=== PATIENT | female | born 1945 | race Caucasian/White ===

== ENCOUNTER 2024-07-03 11:19 | Emergency (ER) | payer OTHER, SELFPAY ==
[2024-07-03 11:34] VITALS: BP 88/71; PULSE 117; RESP 16; TEMP 36.3; O2SAT 98
--- NOTE | 2024-07-03 11:36 | ED.BACK ---
HPI - Back Pain/Injury General Chief Complaint: Back Pain/Injury Stated Complaint: Lower Back Pain Time Seen by Provider: 07/03/24 12:00 Source: patient and RN notes reviewed Mode of arrival: ambulatory Limitations: no limitations History of Present Illness HPI Narrative: 78-year-old female presents with concern for low back pain for 2 weeks. Reports it happened after she was working in her garden mowing her lawn. She reports she can find a position of complete comfort when she is lying on her left side in bed with 1 leg bent forward. Reports otherwise she has pain. She reports sitting for long periods of time makes the pain worse. She denies loss of bowel or bladder function, perianal anesthesia, weakness in any extremity, abdominal pain, fever. She has used pain patches. MD elicited complaint: back pain Related Data Home Medications Medication Instructions Recorded Confirmed budesonide 160 mcg-glycopyr 9 2 inh inhalation BID 07/03/24 07/03/24 mcg-formot 4.8 mcg/actuation HFA inhaler (Breztri Estorianphere) lisinopril 10 mg tablet 10 mg PO DAILY 07/03/24 07/03/24 Allergies Allergy/AdvReac Type Severity Reaction Status Date / Time Penicillins Allergy Severe RASH Verified 07/03/24 11:44 Sulfa (Sulfonamide Allergy Severe RASH Verified 07/03/24 11:44 Antibiotics) Review of Systems Review of Systems: CONSTITUTIONAL: Denies malaise, chills, sweats, or fever. CARDIOVASCULAR: Denies chest pain, palpitations, or edema. RESPIRATORY: Denies cough or dyspnea. GASTROINTESTINAL: Denies abdominal pain, nausea, vomiting, diarrhea, loss of bowel function GENITOURINARY: Denies dysuria, hematuria, frequency, loss of bladder function. SKIN: Denies rash or itching. MUSCULOSKELETAL: Reports low back pain NEUROLOGIC: Denies numbness, weakness, or headache. All systems reviewed & are unremarkable except as noted in HPI and below PMFSH Comments At time of signature, agree with nursing past medical, surgical, social and family history. There is no relevant family history pertinent to the presenting complaint Exam Narrative: GENERAL: Well-appearing, well-nourished, and in no acute distress. HEAD: Normocephalic, atraumatic. EYES: PERRLA and EOMI. NECK: Supple. No lymphadenopathy. CHEST: Clear to auscultation. No respiratory distress. HEART: Regular rate and rhythm. Distal pulses palpable and equal, cap refill <3 seconds ABDOMEN: Soft, nontender, nondistended, normal active bowel sounds, no palpable or pulsatile masses. No CVA tenderness MUSCULOSKELETAL: Normal range of motion and strength in all extremities; 5/5 strength with hip flexion and extension, dorsiflexion and extension, knee flexion and extension, plantar flexion and extension. Normal sensation in dermatomal distributions with sensitivity to light touch and pain. No midline back tenderness to palpation. No paraspinal tenderness. SKIN: Warm, dry, no rash. No ecchymosis, erythema, open wounds to back. NEURO: No focal deficits. Alert and oriented x3. Reflexes intact. PSYCH: Normal mood and affect Course Course Emergency Course: Patient is aware of diagnosis, understands and agrees to treatment plan. Anticipatory guidance given. Patient agrees to follow-up as directed and is aware of reasons to seek care at the emergency department. Portions of this record may have been created with voice recognition software Level of Care: Express Care Visit Vital Signs Vital signs: Vital Signs Temperature 97.4 F L 07/03/24 11:34 Pulse Rate 117 H 07/03/24 11:34 Respiratory Rate 16 07/03/24 11:34 Blood Pressure 88/71 L 07/03/24 11:34 Pulse Oximetry 98 07/03/24 11:34 Oxygen Delivery Room Air 07/03/24 11:34 Temperature 97.4 F L 07/03/24 11:34 Pulse Rate 117 H 07/03/24 11:34 Respiratory Rate 16 07/03/24 11:34 Blood Pressure 88/71 L 07/03/24 11:34 Pulse Oximetry 98 07/03/24 11:34 Oxygen Delivery Room Air 07/03/24 11:34 Reviewed.
== END 2024-07-03 12:15 | disposition home or self-care (01) ==
PROVIDERS: Emergency Provider Nurse Practitioner
DX: M54.50 Low back pain, unspecified (principal); I10 Essential (primary) hypertension; J44.9 Chronic obstructive pulmonary disease, unspecified
CPT/HCPCS: 99203; G0463

== ENCOUNTER → 2024-07-26 10:20 | Outpatient (CLI) | payer OTHER, SELFPAY ==
--- NOTE | ~2024-07-26 | XR_ITS ---
EXAMINATION: XR lumbar spine 6V w bending DATE: 07/26/2024 10:46 INDICATION: Acute bilateral low back pain without sciatica. TECHNIQUE: 5 views of lumbar spine including flexion and extension and upright views were obtained. COMPARISON: None. FINDINGS: There is 10 degrees levoscoliosis of lumbar spine. There is chronic height loss of nearly a ll vertebral bodies. There is an age-indeterminate burst fracture of T12 with 2/5 loss of height. The re is mildly decreased disc height at T12-L1 and mildly decreased disc height at multiple levels in t horacic spine. There is severe osteoarthritis at multiple levels in lower lumbar spine. There are judah gical clips from ventral hernia repair. There is an old healed fracture of right femoral neck. There is mild osteoarthritis of the hips. IMPRESSION: 1. Age-indeterminate burst fracture of T12. 2. Mild lumbar spondylosis. 3. Lumbar levoscoliosis. Reviewed, dictated and finalized at location A.
== END ==
LOC: EXPCRAD 10:23
PROVIDERS: PCP Nurse Practitioner Family; Visit Provider Nurse Practitioner Family
DX: M47.896 Other spondylosis, lumbar region (principal); S22.081A Stable burst fracture of T11-T12 vertebra, initial encounter for closed fracture; X58.XXXA Exposure to other specified factors, initial encounter
CPT/HCPCS: 72114

== ENCOUNTER 2025-06-08 07:05 | Outpatient (CLI) | payer OTHER, SELFPAY ==
--- NOTE | ~2025-06-08 | CT_ITS ---
CT of the Abdomen and Pelvis: Indication: Diaphragmatic hernia Technique: 2.5 mm axial scans were obtained through the abdomen and pelvis following intravenous adm inistration of 100 cc of Omnipaque 350. Dose reduction technique was used on this scan by utilizing a utomated exposure control and iterative reconstruction technique. The dose-length product (DLP) was 1 699.18 mGy-cm. Findings: Scans through the lung bases are clear. There is large hiatal hernia. Intrahepatic and extra hepatic biliary dilatation is probably related to prior cholecystectomy. The s pleen, pancreas, right adrenal gland, and kidneys are within normal limits. Thickening of the left ad renal gland could reflect adrenal hyperplasia. There are atherosclerotic calcifications of the aorta. No lymphadenopathy. No bowel obstruction or bowel wall thickening. There is no evidence to suggest acute appendicitis. Mo derate fat-containing ventral hernia present. Images through the pelvis were performed. Urinary bladder unremarkable. No pelvic mass seen. No ascit es. Prior vertebroplasty noted at T12, L2, L3, L4. There is additional compression fracture of L1 and T11 , age indeterminate. Impression: Large hiatal hernia. Moderate fat-containing ventral hernia, neck just superior to prior herniorrhaphy mesh. Intrahepatic and extra hepatic dilatation is probably related to prior cholecystectomy. Multiple compression fractures, as detailed above. Reviewed, dictated and finalized at location . Impression: Large hiatal hernia. Moderate fat-containing ventral hernia, neck just superior to prior herniorrhap hy mesh. Intrahepatic and extra hepatic dilatation is probably related to prior cholecys tectomy. Multiple compression fractures, as detailed above.
--- OUTSIDE RECORDS SUMMARY | 2025-06-08 07:08 | XMS_ITS | Referral Summary ---
Author Organization [facility] Address [address] [place] [address] Care Team Providers Care Cabinet Worker Name Role Phone Ilda Garcia NP Primary Care Provider [phone] Berhane Peterson MD Unavailable [phone] Bret Denny MD Unavailable Encounters Date Type Department Care Team Description 05/29/2025 10:00 AM CDT Office Visit [facility] [address] [place] [address] [place] [phone] Ilda Garcia NP Hiatal hernia (Primary Dx); BMI 37.0-37.9, adult; Obesity (BMI 30-39.9) 04/25/2025 10:00 AM CDT Office Visit [facility] [address] [place] [address] [place] [phone] Ilda Garcia NP Physical exam (Primary Dx); BMI 38.0-38.9,adult; Obesity (BMI 30-39.9) from Last 3 Months Allergies Active Allergy Reactions Criticality Noted Date Comments Penicillins Rash Reaction: Rash, Sulfa (Sulfonamide Antibiotics) Hives,Rash Reaction: HIVES, Reaction: Rash, Medications calcium carb and citrate-vitD3 600 mg-12.5 mcg (500 unit) tablet extended release Take 600 mg by mouth daily Active cholecalciferol (VITAMIN D-3) 5,000 unit tablet Ac tive multivitamin tabletIndications :Vitamin Deficiency Prevention Take 1 tablet by mouth daily Active ibuprofen 200 mg tab/cap Take 2 tablet/capsule (400 mg total) by mouth every 6 (six) hours as needed for pain Active omega-3 fatty acids-fish oil 300-1,000 mg capsule Take 2 capsules (2 g total) by mouth daily Active famotidine (PEPCID) 20 mg tablet Take 1 tablet (20 mg total) by mouth 2 (two) times a day Active meloxicam (MOBIC) 15 mg tablet TAKE 1 TABLET BY MOUTH EVERY DAY 100 tablet 1 025 Active ibandronate (BONIVA) 150 mg tabletIndications :Localized osteoporosis with current pathological fracture, initial encounter,Osteoar thritis of multiple joints, unspecified osteoarthritis type,Primary osteoarthritis of knees, bilateral Take 1 tablet (150 mg total) by mouth every 30 (thirty) days Take in AM with glass of water prior to food, don't lie down for 30 minutes. 3 tablet 1 025 2025 Active Additional Information Patient not taking.Reported on 05/29/2025 lisinopriL (PRINIVIL,ZESTRIL ) 10 mg tablet TAKE 1 TABLET BY MOUTH EVERY DAY 90 tablet 3 025 Active gabapentin (NEURONTIN) 300 mg capsuleIndication s:Neuropathic Pain Take 1 capsule (300 mg total) by mouth 3 (three) times a day 90 capsule 025 2024 Active lisinopriL (PRINIVIL,ZESTRIL ) 10 mg tablet TAKE 1 TABLET BY MOUTH EVERY DAY 90 tablet 3 024 2024 Discontinued gabapentin (NEURONTIN) 300 mg capsule Take 1 capsule (300 mg total) by mouth 3 (three) times a day 90 capsule 1 025 2024 Discontinued(R eorder) Active Problems Problem Noted Date Diagnosed Date BMI 37.0-37.9, adult 05/29/2025 Assessment & Plan (05/29/2025 9:54 AM CDT): Discussed the patients BMI: The BMI is above average BMI management is complete. BMI follow-up includes: Nutrition Counseling and education provided Hiatal hernia 05/29/2025 Localized osteoporosis with current pathological fracture 10/26/2024 Overview (10/26/2024): Start Fosamax weekly as directed for osteoporosis Assessment & Plan (10/26/2024 8:19 AM REPAIRER AND CHECKER): This is a significant, separately identifiable problem that was evaluated and managed on the same day as the wellness exam Obesity (BMI 30-39.9) 10/25/2024 Assessment & Plan (04/25/2025 9:51 AM CDT): Discussed the patient's BMI. The BMI is above average. BMI management plan is completed. BMI Follow-up includes: nutrition counseling, exercise counseling and education provided. Assessment & Plan (10/25/2024 10:29 AM REPAIRER AND CHECKER): Discussed the patients BMI: The BMI is above average BMI management is complete. BMI follow-up includes: Nutrition Counseling and education provided Compression fracture of T12 vertebra 08/31/2024 Compression fracture of fourth lumbar vertebra 1 Obesity, morbid, BMI 40.0-49.9 07/19/2024 Assessment & Plan (07/19/2024 9:08 AM CDT): Discussed the patient's BMI. The BMI is above average. BMI management plan is completed. BMI Follow-up includes: nutrition counseling, exercise counseling and education provided. Chronic obstructive pulmonary disease 03/24/2024 Assessment & Plan (03/24/2024 9:12 AM CDT): This is a significant, separately identifiable problem that was evaluated and managed on the same day as the wellness exam Colon cancer screening declined 09/23/2022 Severe episode of recurrent major depressive disorder, without psychotic features 03/19/2022 Assessment & Plan (03/19/2022 10:36 AM CDT): Declines medication. Will give her information for heartline for counseling. Lipoma of left lower extremity 03/19/2022 Assessment & Plan (03/19/2022 10:36 AM CDT): Advised consult for excision with surgeon, she declines at this time Acute bilateral low back pain without sciatica 1 Herpes labialis 09/18/2021 Herpesviral vesicular dermatitis 09/18/2021 Mixed hyperlipidemia 09/18/2021 Assessment & Plan (09/18/2021 11:37 AM CDT): Fasting labs entered, will notify patient of results as available Other nonthrombocytopenic purpura 09/18/2021 Senile purpura 09/18/2021 Generalized osteoarthritis 09/18/2021 Polyosteoarthritis, unspecified 09/18/2021 Physical exam 09/18/2021 Benign lipomatous neoplasm o f skin and subcutaneous tissue of left leg 03/20/2021 Overview (03/20/2021): Left calf Herpes dermatitis 03/19/2021 Morbid obesity 03/17/2021 Assessment & Plan (09/18/2021 8:11 AM CDT): Obesity is unchanged. Discussed the patient's BMI. The BMI is above average. BMI management plan is completed. BMI Follow-up includes: nutrition counseling, exercise counseling and education provided. Assessment & Plan (03/17/2021 8:17 AM CDT): Obesity is unchanged. Discussed the patient's BMI. The BMI is above average. BMI management plan is completed. BMI Follow-up includes: nutrition counseling, exercise counseling and education provided. Vitamin D deficiency 03/17/2021 Assessment & Plan (03/19/2022 10:36 AM CDT): Will evaluate further with labs Assessment & Plan (03/17/2021 8:55 AM CDT): Fasting labs entered, will notify patient of results as available History of tobacco use 03/17/2021 Primary osteoarthritis of knees, bilateral 12/04 Acute lateral meniscus tear of left knee 020 Chondromalacia 09/04/2019 Derangement of lateral meniscus 09/04/2019 Left knee pain 06/30/2019 Effusion of left knee 03/27/2019 Hypertension, essential 02/20/2019 Assessment & Plan (03/19/2022 10:35 AM CDT): Patient advised to continue medications the same at this time. They will monitor home bp with goal 120-130/80s. Fasting labs entered, will notify patient of results as available Advised carotid US, she declines at this time. Assessment & Plan (09/18/2021 11:37 AM CDT): Stable, continue medications same at this time Assessment & Plan (03/17/2021 8:55 AM CDT): Fasting labs entered, will notify patient of results as available Continue medication same at this time Primary osteoarthritis of right knee 04/16/2017 Assessment & Plan (09/18/2021 11:37 AM CDT): Stable, continue care same at this time Fracture of upper end of right humerus with rout ine healing 02/14/2016 Resolved Problems Problem Noted Date Diagnosed Date Resolved Date BMI 38.0-38.9,adult 04/25/2025 05/29/20 25 Assessment & Plan (04/25/2025 9:51 AM CDT): Discussed the patients BMI: The BMI is above average BMI management is complete. BMI follow-up includes: Nutrition Counseling and education provided BMI 38.0-38.9,adult 03/24/2023 03/24/20 24 Assessment & Plan (03/24/2023 8:32 AM CDT): Discussed the patients BMI: The BMI is above average BMI management is complete. BMI follow-up includes: Nutrition Counseling and education provided BMI 37.0-37.9, adult 03/24/2023 024 Assessment & Plan (09/24/2023 8:59 AM CDT): Discussed the patients BMI: The BMI is above average BMI management is complete. BMI follow-up includes: Nutrition Counseling and education provided BMI 40.0-44.9, adult 11/04/2022 023 Assessment & Plan (11/04/2022 8:15 AM REPAIRER AND CHECKER): Obesity is unchanged. Discussed the patient's BMI. The BMI is above average. BMI management plan is completed. BMI Follow-up includes: nutrition counseling, exercise counseling and education provided. Morbid obesity with BMI of 40.0-44.9, adult 11/04/2022 03/24/2023 Assessment & Plan (11/04/2022 8:16 AM REPAIRER AND CHECKER): Obesity is unchanged. Discussed the patient's BMI. The BMI is above average. BMI management plan is completed. BMI Follow-up includes: nutrition counseling, exercise counseling and education provided. BMI 39.0-39.9,adult 09/18/2021 07/19/20 24 Assessment & Plan (09/18/2021 8:11 AM CDT): Obesity is unchanged. Discussed the patient's BMI. The BMI is above average. BMI management plan is completed. BMI Follow-up includes: nutrition counseling, exercise counseling and education provided. BMI 36.0-36.9,adult 03/17/2021 09/18/20 21 Assessment & Plan (03/17/2021 8:17 AM CDT): Obesity is unchanged. Discussed the patient's BMI. The BMI is above average. BMI management plan is completed. BMI Follow-up includes: nutrition counseling, exercise counseling and education provided. Encounter to establish care 03/17/2021 03/19/2022 Assessment & Plan (03/17/2021 8:55 AM CDT): Retrieve records from previous pcp Declines mammo, cscope, bmd, and vaccinations Fasting labs entered, will notify patient of results as available Immunizations Immunization Administration Dates Next Due Influenza, Unspecified 11/22/2024(Deferr ed: Patient Refused),11/22/2024(Deferred: Patient Refused),10/25/2024(Deferred: Patient Refused),11/22/2023(Deferred: Patient Refused),11/22/2023(Deferred: Patient Refused),11/22/2023(Deferred: Patient Refused),11/22/2023(Deferred: Patient Refused),09/24/2023,03/24/2023(Deferred: Patient Refused),11/22/2022,12/23/2021(Deferred: Patient Refused),09/10/2021(Deferred: Patient Refused) Pneumococcal Conjugate Pcv20 03/24/2023(Deferred : Patient Refused) Tdap 08/28/2019 ZOSTER Recombinant 05/29/2025(Deferred: Patient Refused),09/24/2023(Deferred: Patient Refused),11/22/2022(Deferred: Patient Refused) Social History Tobacco Use Types Packs/Day Years Used Date Smoking Tobacco: Former Passive Smoke Exposure: Current Smokeless Tobacco: Never Tobacco Cessation:Counseling Given: Not Answered Alcohol Use Standard Drinks/Week Comments Never 0 (1 standard drink = 0.6 oz pur e alcohol) AUDIT-C Answer Date Recorded Q1: How often do you have a drink containing alc ohol? Monthly or less 05/29/2025 Q2: How many drinks containi ng alcohol do you have on a typical day when you are drinking? 1 or 2 05/29/2025 Q3: How often do you have si x or more drinks on one occasion? Never 05/29/2025 PHQ-2 Answer Date Recorded PHQ-2 Total Score (If total score is 3 or more points, staff should administer the PHQ-9) 0 05/29/2025 Personal Safety Answer Date Recorded Have you ever been in or are you currently in a harmful physical or emotional relationship or is someone making you feel afraid or unsafe? Denies 09/19/2024 Comments No Sex and Gender Information Value Date Recorded Sex Assigned at Not on file Legal Sex Female 12:48 AM REPAIRER AND CHECKER Gender Identity Not on file Sexual Orientation Not on file Last Filed Vital Signs Vital Sign Reading Time Taken Comments Blood Pressure 132/78 05/29/2025 9:50 AM CDT Pulse 78 05/29/2025 9:50 AM CDT Temperature 37 C (98.6 F) 05/29/2025 9:50 AM CDT Respiratory Rate 18 02/01/2025 12:02 PM CDT Oxygen Saturation 98% 05/29/2025 9:50 AM CDT Inhaled Oxygen Concentration - - Weight 83.9 kg (185 lb) 05/29/2025 9:50 AM CDT Height 149.9 cm (4' 11) 05/29/2025 9:50 AM CDT Body Mass Index 37.37 05/29/2025 9:50 AM CDT Plan of Treatment Not on file Medical Devices Implanted Type Area Process Designer Device Identifier Shelf Expiration Date Model / Serial / Lot [employer] Vertaplex Hv Autoplex Without Needle Delivery System Kit Bone [id number] - [id number] Implanted:Qty : 1 on 09/05/2024 by Bret Denny MD at [facility] N/A: Spine Lumbar [employer] [id number] 06/22/2025 [id number] / / [id number] Description:Cement Ref 0406- 622-015; Lot [id number]; Expiration 07-22-2025 [employer] Vertaplex Hv Autoplex Without Needle Delivery System Kit Bone [id number] - [id number] Implanted:Qty : 1 on 09/19/2024 by Bret Denny MD at [facility] N/A: Spine Lumbar [employer] [id number] 06/22/2025 [id number] / / [id number] Description:[id number] 10/21/2025 Explanted Type Area Process Designer Device Identifier Shelf Expiration Date Model / Serial / Lot [employer] Avamax Od13 Ga L10 Mm Balloon Tray Bone Cement [id number] - [id number] Explanted:Qty : 2 on 09/05/2024 by Bret Denny MD at [facility] N/A: Spine Lumbar [employer] [id number] 12/29/2025 [id number] / / [id number] Description:Not an Implant [employer] Avamax Od13 Ga L10 Mm Balloon Tray Bone Cement [id number] - [id number] Explanted:Qty : 1 on 09/19/2024 by Bret Denny MD at [facility] N/A: Spine Lumbar [employer] [id number] 09/21/2025 [id number] / / [id number] [employer] Avamax Od13 Ga L10 Mm Balloon Tray Bone Cement [id number] - [id number] Explanted:Qty : 1 on 09/19/2024 by Bret Denny MD at [facility] N/A: Spine Lumbar [employer] [id number] 09/21/2025 [id number] / / [id number] Procedures Procedure Name Priority Date/Time Associated Diagnosis Comments HEPATITIS C ANTIBODY Routine 09/23/2022 8:57 AM CDT Encounter for hepatitis C screening test for low risk patient from Last 3 Months or Most Recently Relevant to Health Maintenance Results * Hepatitis C antibody (09/23/2022 8:57 AM CDT) Hep C Ab NON-REACTI VE NON-REACT CODI [facility] SIGNAL TO CUT-OFF 0.01 <1.00 [facility] Comment: HCV antibody was non-reactive. There is no laboratory evidence of HCV infection. In most cases, no further action is required. However, if recent HCV exposure is suspected, a test for HCV RNA (test code 80532) is suggested. For additional information please refer to http://education.[employer]/faq/IZX13u9 (This link is being provided for informational/ educational purposes only.) Blood 09/23/2022 8:57 AM CDT 09/23/2022 8:57 AM CDT Ilda Garcia NP LAB MICROBIOLOGY - GENERAL OR DERABLES Final Result [facility] [address] [phone] from Last 3 Months or Most Recently Relevant to Health Maintenance Insurance [facility] Care Teams Cabinet Worker Relationship Specialty Start Date End Date Ilda Garcia NP [address] [address] PCP - General Internal Medicine 03/24/23 Berhane Peterson MD [address] [facility] [address] [address] Consulting Physician Internal Medicine 08/31/24 Bret Denny MD [address] [facility], [address] [address] Consulting Physician Pain Management 08/31/24
--- OUTSIDE RECORDS SUMMARY | 2025-06-08 07:08 | XMS_ITS | Clinical Summary ---
Author Organization [facility] Address [address] [place] [address] Care Team Providers Care Dynamite Packing Machine Feeder Name Role Phone Ilda Garcia NP Primary Care Provider [phone] Berhane Peterson MD Unavailable [phone] Bret Denny MD Unavailable Allergies Active Allergy Reactions Criticality Noted Date [...] day 90 capsule 1 025 2024 Discontinued(R eodarlyner) Active Problems Problem Noted Date Diagnosed Date [...] osteoporosis Assessment & Plan (10/26/2024 8:19 AM MEDICAL BILLING INSTRUCTOR): This is a significant, separately identifiable problem that was evaluated and managed on the same day as the wellness exam Obesity (BMI 30-39.9) 10/25/2024 Assessment & Plan (04/25/2025 9:51 AM CDT): Discussed the patient's BMI. The BMI is above average. BMI management plan is completed. BMI Follow-up includes: nutrition counseling, exercise counseling and education provided. Assessment & Plan (10/25/2024 10:29 AM MEDICAL BILLING INSTRUCTOR): Discussed the patients BMI: The BMI is [...] 023 Assessment & Plan (11/04/2022 8:15 AM MEDICAL BILLING INSTRUCTOR): Obesity is unchanged. Discussed the patient's BMI. The BMI is above average. BMI management plan is completed. BMI Follow-up includes: nutrition counseling, exercise counseling and education provided. Morbid obesity with BMI of 40.0-44.9, adult 11/04/2022 03/24/2023 Assessment & Plan (11/04/2022 8:16 AM MEDICAL BILLING INSTRUCTOR): Obesity is unchanged. Discussed the patient's BMI. [...] will notify patient of results as available Encounters Date Type Department Care Team Description 05/29/2025 10:00 AM CDT Office Visit [address] [phone] Ilda Garcia NP Hiatal hernia (Primary Dx); BMI 37.0-37.9, adult; Obesity (BMI 30-39.9) 04/25/2025 10:00 AM CDT Office Visit [address] [place] [phone] Ilda Garcia NP Physical exam (Primary Dx); BMI 38.0-38.9,adult; Obesity (BMI 30-39.9) from Last 3 Months Immunizations Immunization Administration Dates Next Due Influenza, Unspecified 11/22/2024(Deferr ed: Patient Refused),11/22/2024(Deferred: Patient Refused),10/25/2024(Deferred: Patient Refused),11/22/2023(Deferred: Patient Refused),11/22/2023(Deferred: Patient Refused),11/22/2023(Deferred: Patient Refused),11/22/2023(Deferred: Patient Refused),09/24/2023,03/24/2023(Deferred: Patient Refused),11/22/2022,12/23/2021(Deferred: Patient Refused),09/10/2021(Deferred: Patient Refused) Pneumococcal Conjugate Pcv20 03/24/2023(Deferred : Patient Refused) Tdap 08/28/2019 ZOSTER Recombinant 05/29/2025(Deferred: Patient Refused),09/24/2023(Deferred: Patient Refused),11/22/2022(Deferred: Patient Refused) Surgical History Surgery Date Site/Laterality Comments CHOLECYSTECTOMY HERNIA REPAIR 11/22/2002 - 11/21/2003 X2 HYSTERECTOMY COLECTOMY REPORTS PART OF COLON REMOVED KYPHOPLASTY 09/19/2024 N/A L2 & L4 Medical History Medical History Date Comments Hypertension COPD (chronic obstructive pu lmonary disease) (HCC) Arthritis Major depressive disorder PATIEN T DENIES. NOTED IN CHART. Hyperlipidemia Hiatal hernia CAUSES REFLUX GERD (gastroesophageal reflux disease) Family History Medical History Relation Name Comments COPD Father Heart disease Father Heart disease Mother Cancer Other Diabetes Other Heart disease Other Hypertension Other Relation Name Status Comments Father Mother Alive Other Social History Tobacco Use Types Packs/Day Years [...] on file Legal Sex Female 12:48 AM MEDICAL BILLING INSTRUCTOR Gender Identity Not on file Sexual Orientation Not on file Obstetrics History Last Filed Vital Signs Vital Sign Reading [...] 05/29/2025 9:50 AM CDT Plan of Treatment Health Maintenance Due Date Last Done Comments Osteoporosis Screening-Bone Density Scan 1945 Hepatitis B Screening 1964 Zoster Vaccine (1 of 2) 1996 Influenza Vaccine (#1) 2025 09/24/2023, 2022 Well Visit 65+ 04/25/2026 04/25/2025, 02/2024, 03/24/2024, Additional history exists Depression Screening 05/29/2026 05/29/2025, 04/25/2025, 10/25/2024, Additional history exists Fall Risk Assessment 05/29/2026 05/29/2025, 04/25/2025, 10/25/2024, Additional history exists DTaP/Tdap/Td Vaccine (2 - Td or Tdap) 08/28/2029 08/28/2019 Hepatitis C Screening Completed 09/23/2022 Pneumococcal vaccine 65+ Discontinued Medical Devices Implanted Type Area Senior Product Development Scientist Device Identifier Shelf Expiration Date Model / Serial / Lot [employer] Vertaplex Hv Autoplex Without Needle Delivery System Kit Bone [id number] - [id number] Implanted:Qty : 1 on 09/05/2024 by Bret Denny MD at [facility] N/A: Spine Lumbar [employer] [id number] 06/22/2025 [id number] / / [id number] Description:Cement Ref 0406- 622-015; Lot [id number]; Expiration 07-22-2025 [employer] Vertaplex Hv Autoplex Without Needle Delivery System Kit Bone [id number] - [id number] Implanted:Qty : 1 on 09/19/2024 by Bret Denny MD at [facility] N/A: Spine Lumbar [employer] [id number] 06/22/2025 [id number] / / [id number] Description:[id number] 10/21/2025 Explanted Type Area Senior Product Development Scientist Device Identifier Shelf Expiration Date Model / Serial / Lot [employer] Avamax Od13 Ga L10 Mm Balloon Tray Bone Cement [id number] - [id number] Explanted:Qty : 2 on 09/05/2024 by Bret Denny MD at [facility] N/A: Spine Lumbar [employer] [id number] 12/29/2025 [id number] / / [id number] Description:Not an Implant [employer] Avamax Od13 Ga L10 Mm Balloon Tray Bone Cement [id number] - [id number] Explanted:Qty : 1 on 09/19/2024 by Bret Denny MD at [facility] N/A: Spine Lumbar [employer] [id number] 09/21/2025 [id number] / / [id number] [employer] Avamax Od13 Ga L10 Mm Balloon Tray Bone Cement [id number] - [id number] Explanted:Qty : 1 on 09/19/2024 by Bret Denny MD at [facility] N/A: Spine Lumbar [employer] [id number] 09/21/2025 [id number] / / [id number] Procedures Procedure Name Priority Date/Time Associated Diagnosis [...] a test for HCV RNA (test code 70943) is suggested. For additional information please refer to http://education.[employer]/faq/EZU84y7 (This link is being provided for informational/ educational purposes only.) Blood 09/23/2022 8:57 AM CDT 09/23/2022 8:57 AM CDT Ilda Garcia NP LAB MICROBIOLOGY - GENERAL OR DERABLES Final Result Performing Organization Address City/State/[facility] Co de Phone Number [facility] [address] [place] [address] from Last 3 Months or Most Recently Relevant to Health Maintenance Insurance [facility] Care Teams Dynamite Packing Machine Feeder Relationship Specialty Start Date End Date Ilda Garcia NP [address] [facility] [address] [place] [address] PCP - General Internal Medicine 03/24/23 Berhane Peterson MD [address] [facility] [address] [address] Consulting Physician Internal Medicine 08/31/24 Bret Denny MD [address] [facility] [address] Consulting Physician Pain Management 08/31/24
[2025-06-08 07:44] LABS: Estimated Glomerular Filt Rate 54
== END 2025-06-08 07:06 | disposition home or self-care (01) ==
PROVIDERS: PCP Nurse Practitioner Family; Visit Provider Nurse Practitioner Family
DX: K44.9 Diaphragmatic hernia without obstruction or gangrene (principal); K43.9 Ventral hernia without obstruction or gangrene; K76.89 Other specified diseases of liver; S32.010A Wedge compression fracture of first lumbar vertebra, initial encounter for closed fracture; S22.080A Wedge compression fracture of T11-T12 vertebra, initial encounter for closed fracture; X58.XXXA Exposure to other specified factors, initial encounter; Z98.890 Other specified postprocedural states; Z90.49 Acquired absence of other specified parts of digestive tract
CPT/HCPCS: 74177; Q9967

== ENCOUNTER 2025-08-03 12:10 | Outpatient (CLI) | payer OTHER, SELFPAY ==
--- OUTSIDE RECORDS SUMMARY | 2021-08-15 03:33 | XMS_ITS | Continuity of Care Document ---
Author Organization [facility] Address [address] [place] [address] Phone Care Team Providers Care Rag Sorter Name Role Phone Jake Prather DO Unavailable [...] PANEL URINALYSIS, REFLEX (UA) ROUTINE VENIPUNCTURE OFFICE [id number] BODY MASS INDEX DOCD SYST BP GE 130 - 139MM HG DIAST BP < 80 MM HG OFFICE [id number] BODY MASS INDEX DOCD SYST BP GE 130 - 139MM HG DIAST BP 80-89 MM HG OFFICE [id number] BODY MASS INDEX DOCD SYST BP LT 130 MM HG DIAST BP 80-89 MM HG FREE T4 (FT4) THYROID STIMULATION HORMONE(TSH) 2018 ROUTINE VENIPUNCTURE Pt inelig neg scrn depres IMMUN ADMIN (INC PERCUTANEOUS) SINGLE, F IRST INJ TDAP INTRAMUSCULAR USE COMPREHEN METABOLIC PANEL CMP 9 LIPID PANEL THYROID STIMULATION HORMONE(TSH) 2018 URINALYSIS, REFLEX (UA) ROUTINE VENIPUNCTURE OFFICE [id number] BODY MASS INDEX DOCD SYST BP GE 130 - 139MM HG DIAST BP < 80 MM HG Advance Directives Directive Yes / No Effective Date File Name No Information Encounters Encounter Description Practice Location Reason(s) For Visit Diagnoses Date Provider Providers Copied on Encounter [facility], [address], [address] [address], [place], [id number] , [place] tel: [phone] [facility] Internal Medicine No Information 1 Serena Joseph. [address] [place] [address], [place], [place], [address], [place]. tel:[phone] [facility], [address], [place] [address], [place], [address] , [place] tel: [phone] [facility] Internal Medicine No Information 1 Serena Joseph. [facility] [place], [place], [address], [place]. tel:[phone] [facility], [address], [place] [address], [place], [address] , [place] tel: [phone] [facility] Internal Medicine Screening mammogram, encounter for 0 Jeevan Garcia. [address] [place] [address], [address], [place]. tel:[phone] [facility], [address], [place] [address], [place], [address] , [place] tel: [phone] [facility] Outpatient Services Encounter for screening for malignant neoplasm of colon Jul- 0 Serena Joseph. [address] [place] [address], [id number], [place]. tel:[phone] Referring Provider: Jake ventura, [address] [place] [address], [address] . tel:[phone] OFFICE RWVTV-YMY-EX [facility], [address], [place] [address], [place], [address] , tel: [phone] [facility] Internal Medicine Chronic Conditions (chief complaint) Polyosteoarthr itis, unspecifiedEss ential (primary) hypertensionOt her nonthrombocyto penic purpuraMorbid (severe) obesity due to excess caloriesEncoun ter for screening mammogram for malignant neoplasm of breastScreenin g for malignant neoplasm of colonAcute midline low back pain without sciatica Sep-2 0 Jeevan Garcia. [address] [place] [address], [address], [place]. tel:[phone] Referring Provider: Jake ventura, [address] [place] [address], [address] . tel:[phone] [facility], [address], [place] [address], [place], [address] , [place] tel: [phone] [facility] No Information 0 Serena Joseph. [address] [place] [address], [id number], [place]. tel:[phone] [facility], [address], [place] [address], [place], [address] , [place] tel: [phone] [facility] Herpesviral vesicular dermatitis 0 Serena Joseph. [address] [place] [address], [id number], [place]. tel:[phone] [facility], [address], [place] [address], [place], [address] , tel: [phone] [facility] Recurrent aphthous ulcerHerpesvir al vesicular dermatitis 0 Serena Joseph. [address] [place] [address], [id number], [place]. tel:[phone] OFFICE LVIJL-OVF-UC [facility], [address], [place] [address], [place], [address] , [place] tel: [phone] [facility] Office Visit (chief complaint)C hronic Conditions (chief complaint) Body mass index (BMI) 36.0-36.9, adultHerpesvir al vesicular dermatitisEsse ntial (primary) hypertensionCh ondromalacia, left kneeOther meniscus derangements, other lateral meniscus, left kneeSubcutaneo us lipoma 0 Serena Joseph. [address] [place] [address], [id number], [place]. tel:[phone] Referring Provider: Jake ventura, [address] [place] [address], [address] . tel:[phone] [facility], [address], [place] [address], [place], [address] , [place] tel: [phone] [facility] No Information 9 Serena Joseph. [address] [place] [address], [id number], [place]. tel:[phone] OFFICE AIDGP-SBR-RF [facility], [address], [place] [address], [place], [address] , tel: [phone] [facility] Lesions (chief complaint) Recurrent aphthous ulcer 9 Serena Joseph. [address] [place] [address], [id number], [place]. tel:[phone] Referring Provider: Jake ventura, [address] [place] [address], [address] . tel:[phone] [facility], [address], [place], [place], [address] , tel: [phone] [facility] Other specified abnormal findings of blood chemistry 9 Serena Joseph. [address] [place] [address], [id number], [place]. tel:[phone] Referring Provider: Jake ventura, [address] [place] [address], [address] . tel:[phone] [place] [address], [address], [place] [address], [place], [address] , [place] tel: [phone] [facility] Elevated TSH 9 Serena Joseph. [address] [place] [address], [id number], [place]. tel:[phone] OFFICE RCUQT-FIG-PB [facility], [address], [place] [address], [place], [address] , tel: [phone] [facility] 6 month (chief complaint)C hronic Conditions (chief complaint) Body mass index (BMI) 37.0-37.9, adultEssential (primary) hypertensionMi xed hyperlipidemia Polyosteoarthr itis, unspecifiedOth er nonthrombocyto penic purpuraHerpesv iral vesicular dermatitisPunc ture wound of finger of left hand, initial encounter 9 Serena Joseph. [address] [place] [address], [id number], [place]. tel:[phone] Referring Provider: Jake ventura, [address] [place] [address], [place], [address] . tel:[phone] [facility], [address], [place] [address], [place], [address] , [place] tel: [phone] [facility] Essential (primary) hypertensionRe fused pneumococcal vaccineMammogr am declinedPolyos teoarthritis, unspecifiedMix ed hyperlipidemia Obesity, unspecified 9 Serena Joseph. [address] [place] [address], [place], [place], [id number], [place]. tel:[phone] Referring Provider: Jake ventura, [address] [place] [address], [place], [address] . tel:[phone] [facility], [address], [place] [address], [place], [address] , [place] tel: [phone] [facility] Primary osteoarthritis of right knee 9 Serena Joseph. [address] [place] [address], [id number], [place]. tel:[phone] [facility], [address], [place] [address], [place], [address] , [place] tel: [phone] [facility] Essential (primary) hypertensionPr imary osteoarthritis of right kneeMixed hyperlipidemia Mammogram declinedRefuse d pneumococcal vaccineMorbid (severe) obesity due to excess caloriesSenile purpura 8 Michael Garcia. [address] [facility], [address], [place], [place], [address]. tel:[phone] Referring Provider: Jose Rodriguez, [address] [facility] [address] [place] [address], [address] . tel:[phone] [facility], [address], [place] [address], [place], [address] , tel: [phone] [facility] Essential (primary) hypertensionPr imary osteoarthritis of right kneeMixed hyperlipidemia Mammogram declinedRefuse d pneumococcal vaccineSenile purpuraObesity (BMI 30-39.9) 8 Michael Garcia. [address] [facility], [address], [place], [place], [address]. tel:[phone] Referring Provider: Jose Rodriguez, [address] [facility] [address], [place], [address] . tel:[phone] [facility], [address], [place] [address], [place], [address] , tel: [phone] [facility] Essential (primary) hypertensionPr imary osteoarthritis of right kneeMorbid (severe) obesity due to excess caloriesMixed hyperlipidemia Senile purpura 7 Michael Garcia. [address] [facility], [address], [place], [place], [address]. tel:[phone] Referring Provider: Jose Rodriguez, [address] [facility] [address], [place], [address] . tel:[phone] [facility], [address], [place] [address], [place], [address] , tel: [phone] [facility] Essential (primary) hypertensionPr imary osteoarthritis of right kneeMorbid (severe) obesity due to excess caloriesMixed hyperlipidemia 3 7 Michael Garcia. [address] [facility] [address], [address], [place], [place], [address]. tel:[phone] Referring Provider: Jose Rodriguez, [address] [facility] [address], [place], [address] . tel:[phone] [facility], [address], [place] [address], [place], [address] , tel: [phone] [facility] Essential (primary) hypertensionPr imary osteoarthritis of right kneePure hypercholester olemiaMorbid obesity due to excess calories Sep-1 2-201 6 Michael Garcia. [address] [facility], [address], [place], [place], [address]. tel:[phone] Referring Provider: Jose Rodriguez, [address] [facility] [address], [place], [address] . tel:[phone] [facility], [address], [place] [address], [place], [address] , tel: [phone] [facility] History of humerus fracture Jan-1 4-201 6 Michael Garcia. [address] [facility], [address], [place], [place], [address]. tel:[phone] [facility], [address], [place], [place], [address] , tel: [phone] [facility] Essential (primary) hypertensionAt herosclerosis of aortaOsteoarth ritis of knee, unspecifiedHis tory of humerus fractureMorbid obesity due to excess caloriesBMI 36.0-36.9,adul t Mar-0 3-201 6 Michael Garcia. [address] [facility], [address], [place], [place], [address]. tel:[phone] Referring Provider: Jose Rodriguez, [address] [facility] [address], [place], [address] . tel:[phone] [facility], [address], [place] [address], [place], [address] , [place] tel: [phone] [facility] Fracture of right shoulder with routine healing Mar-0 2-201 6 Michael Garcia. [address] [facility], [address], [place], [place], [address]. tel:[phone] [facility], [address], [place] [address], [place], [address] , [place] tel: [phone] [facility] Acute pain of right shoulder Feb-0 5-201 6 Michael Garcia. [address] [facility], [address], [place], [place], [address]. tel:[phone] [facility], [address], [place], [place], [address] , tel: [phone] [facility] Pain in unspecified knee 0 5 Rodriguez Jose. [address] [facility] [address], [address], [place], [place], [address]. tel:[phone] [facility], [address], [place], [place], [address] , tel: [phone] [facility] HypertensionAo rtic atherosclerosi sHiatal herniaMorbid obesityBMI 38.0-38.9,adul tOsteoarthriti s of right knee 5 Rodriguez Jose. [address] [facility] [address], [address], [place], [place], [address]. tel:[phone] Referring Provider: Jose Rodriguez, [address] [facility] [address], [place], [address] . tel:[phone] [facility], [address], [place], [place], [address] , tel: [phone] [facility] HypertensionAo rtic atherosclerosi sHiatal herniaMorbid obesityFAMILY HX-BREAST MALIGOsteoarth ritis of right knee 5 Rodriguez Jose. [address] [facility] [address], [address], [place], [place], [address]. tel:[phone] Referring Provider: Joes Rodriguez, [address] [facility] [address], [place], [address] . tel:[phone] [facility], [address], [place] [address], [place], [address] , [place] tel: [phone] [facility] HypertensionHi atal herniaAortic atherosclerosi sMorbid obesityBMI 40.0-44.9, adultOsteoarth ritis of right knee 4 Rodriguez Jose. [address] [facility] [address], [address], [place], [place], [address]. tel:[phone] Referring Provider: Jose Rodriguez, [address] [facility] [address], [place], [address] . tel:[phone] [facility], [address], [place] [address], [place], [address] , tel: [phone] [facility] History of fall/At Risk For FallingHistory of colon resectionDiver ticulosisHyper tensionOsteoar thritis of right kneeAnnual physical examMorbid obesityAdult body mass index 40.0-44.9Routi ne Medical ExamHiatal hernia 3-201 4 Rodriguez Jose. [address] [facility], [address], [place], [place], [address]. tel:[phone] Referring Provider: Jose Rodriguez, [address] [facility] [address], [place], [address] . tel:[phone] [facility], [address], [place] [address], [place], [address] , tel: [phone] [facility] No Information Sep-0 6-201 1 Rodriguez Jose. [address] [facility], [address], [place], [place], [address]. tel:[phone] [facility], [address], [place] [address], [place], [address] , tel: [phone] [facility] GENERAL OSTEOARTHROSIS ROUTINE MEDICAL EXAMBACKACHE NOSVENTRAL HERNIA NEC Noe-0 8-200 9 Rodriguez Jose. [address] [facility], [address], [place], [place], [address]. tel:[phone] [facility], [address], [place] [address], [place], [address] , tel: [phone] [facility] MALIGNANT BLAISE COLON NOSDVRTCLO COLON W/O HMRHGDVRTCLI COLON W/O HMRHGPOST-PROC STATES NECABRASION TRUNKFAMILY HX-BREAST MALIGADRENAL DISORDER NECVACCINATION FOR TD-DT Dec-0 8-200 8 Rodriguez Jose. [address] [facility], [address], [place], [place], [address]. tel:[phone] [facility], [address], [place] [address], [place], [address] , [place] tel:[phone] [facility] FEVERURIN TRACT INFECTION NOSLEG VARICOSITY W INFLAM 5-200 8 Rodriguez Jose. [address] [facility], [address], [place], [place], [address]. tel:[phone] [facility], [address], [place], [place], [address] , [place] tel:[phone] [facility] ENDOCRINE/NERV BLAISE NOS Sep 8-200 3 Rodriguez Jose. [address] [facility], [address], [place], [place], [address]. tel:[phone] [facility], [address], [place] [address], [place], [address] , [place] tel: [phone] [facility] OBESITY NOS 3-200 3 Rodriguez Jose. [address] [facility], [address], [place], [place], [address]. tel:[phone] [facility], [address], [place] [address], [place], [address] , [place] tel:[phone] [facility] SCIATICA Apr-0 9-200 2 Rodriguez Jose. [address] [facility], [address], [place], [place], [address]. tel:[phone] [facility], [address], [place] [address], [place], [address] , [place] tel:[phone] [facility] SCREEN MAL NEOP OTH SITE Aug-0 6-200 1 Rodriguez Jose. [address] [facility], [address], [place], [place], [address]. tel:[phone] [facility], [address], [place] [address], [place], [address] , [place] tel:[phone] [facility] HYPOTHYROIDISM NOS 3-200 1 Rodriguez Jose. [address] [facility], [address], [place], [place], [address]. tel:[phone] [facility], [address], [place] [address], [place], [address] , [place] tel: [phone] [facility] JOINT PAIN-UP/ARM 1 Conversion Doctor. [address] [place], [address], [place]. [facility], [address], [place], [place], [address] , tel: [phone] [facility] DERMATITIS NOSNONSPECIF SKIN ERUPT NEC 1 [facility]. [address] [employer], [place], [address], [place]. Family History Family Member Type Diagnosis [...] older refused Source: New Immuniz ation Record 26425 - TD administered Source: Source Unspecified Payers Payer name Insurance type Covered democrat ID Authoriza tion(s) [place] [id number] [place] [id number] [place] [id number] [place] [id number] Social History Type Description Quantity Date Captured Comments Sex Female Smoking Status No Information Chief Complaint And Reason For Visit No Information Reason For Referral Reason For Referral No Information Plan Of Treatment Date Type Action Status Goal Dietary manageme nt education, guidance, and counseling completed Goal Dietary manageme nt education, guidance, and counseling completed Referral Referred To: [address] [place], [phone] Ordered: SCREENING MAMMOGRAM (CAD) Appointment date/timeframe: 05/22/2021 ordered Referral Referred To: Yajaira Jules MD [address] [place], [phone] Ordered: Referrals: Gastroenterology. Yajaira Jules MD. Evaluation/diagnostic/treatment - Level 3 Appointment date/timeframe: 05/22/2021 ordered Referral Ordered: Homero Mohamud -Dermatology (related to Herpesviral vesicular dermatitis) ordered Referral Referred To: Homero Mohamud [address] [facility] [place]
[address] [place], [phone] Ordered: Referrals: Dermatology. Homero Mohamud. Evaluation/diagnostic/treatment - Level 3 ordered Referral Ordered: Sandeep Segundo MD -Otolaryngology (related to Herpesviral vesicular dermatitis) ordered Referral Referred To: Sandeep Segundo MD [address] [facility]
[address] [place], [phone] Ordered: Referrals: Otolaryngology. Sandeep Segundo MD. Evaluation/diagnostic/treatment [...] to the freestanding breast imaging place in [place]- I am unsure if they still do [...]
--- NOTE | ~2025-08-03 | XR_ITS ---
Examination: XR chest 2V Clinical History: K43.0 - Incisional hernia with obstruction, without gangrene Comparison: None Technique: Portable AP Findings: Heart size normal. Lungs clear. No acute bony abnormality. Severe thoracic kyphosis and severe osteopenia. Several vertebral bodies with cement augmentation. Large hiatal hernia. IMPRESSION: 1. No acute cardiopulmonary findings. Reviewed, dictated and finalized at location R.
--- NOTE | 2025-08-03 12:30 | ECG_ITS ---
Test Date: 2025-08-03 12:39:15 Measurements Intervals [place] Rate: 78 P: 87 SD: 196 QRS: -5 QRSD: 89 T: 14 QT: 368 QTc: 420 Interpretive Statements SINUS RHYTHM WITH OCCASIONAL VENTRICULAR PREMATURE COMPLEXES WARNING: DATA QUALITY MAY AFFECT INTERPRETATION No previous ECG available for comparison Electronically Signed On 08-03-2025 15:43:48 CDT by Feng Nielson M.D.
[2025-08-03 13:26] LABS: Hematocrit 39.5 % (37.0-47.0); Hemoglobin 13.1 g/dL (12.0-15.0); Immature Granulocyte Percent A 0.6 % (0-0.5); Lymphocytes Absolute Auto 1.55 K/mm3 (0.9-3.2); Mean Corpuscular HGB Conc 33.2 g/dl (32-36); Mean Corpuscular Hemoglobin 30.0 pg (26-34); Mean Corpuscular Volume 90.6 fl (80-100); Nucleated Red Blood Cells Absolute Auto 0.000 K/mm3 (0.0-0.012); Nucleated Red Blood Cells Perc 0.0 % (0.0-0.2); Platelet Count Result 182 k/mm3 (150-375); Red Blood Count 4.36 M/mm3 (4.2-5.4); White Blood Count 7.3 K/mm3 (4.5-10.0)
[2025-08-03 13:46] LABS: Alanine Aminotransferase 17 U/L (6-35); Albumin Level 4.1 g/dL (3.5-5.1); Alkaline Phosphatase 92 U/L (38-126); Anion Gap 8 mmol/L (4-12); Aspartate Amino Transferase 31 U/L (14-36); Bilirubin,Total 0.6 mg/dL (0.2-1.3); Blood Urea Nitrogen 15 mg/dL (7-17); Calcium 9.4 mg/dL (8.4-10.2); Carbon Dioxide 26 mmol/L (22-30); Chloride 102 mmol/L (98-107); Estimated Glomerular Filt Rate > 60; Glucose 101 mg/dL (65-110); Potassium 3.9 mmol/L (3.4-5.0); Sodium 136 mmol/L (137-145); Total Protein 7.3 g/dL (6.3-8.2)
== END 2025-08-03 12:11 | disposition home or self-care (01) ==
LOC: ANHSURGERY 12:15
PROVIDERS: PCP Nurse Practitioner Family; Visit Provider Surgery
DX: K43.0 Incisional hernia with obstruction, without gangrene (principal); K40.90 Unilateral inguinal hernia, without obstruction or gangrene, not specified as recurrent
CPT/HCPCS: 36415; 71046; 80053; 85025; 86850; 86900; 86901; 93005

== ENCOUNTER 2025-08-07 00:21 | Day surgery (SDC) | payer OTHER, SELFPAY ==
--- OUTSIDE RECORDS SUMMARY | 2021-08-15 03:33 | XMS_ITS | Continuity of Care Document ---
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 Name Role Phone Jake Prather DO Unavailable Unava ilable Allergies, Adverse Reactions, Alerts Substance Reaction Status Criticality Sulfa (Sulfonamide Antibiotics) rash(moderate) Active No Information Penicillins Other Active No Information Medications Medication Instructions Dosage Effective Dates (start - stop) Status Comments MELOXICAM 15 MG TABLET TAKE 1 TABLET BY MOUTH EVERY DAY - Active hydrocodone 10 mg-acetaminophen 325 mg tablet take 1 tablet by oral route every 4 - 6 hours as needed for pain 1.00 tablet - Active M15.9 cyclobenzaprine 5 mg tablet take 1 tablet by oral route 2 times every day 5 MG - Active LISINOPRIL 10 MG TABLET TAKE ONE TABLET BY MOUTH ONCE DAILY - Active dexamethasone 0.5 mg/5 mL oral elixir take 5 milliliter by oral route 3 times every day, swish in your mouth for 5 minutes and then spit out. - Active acyclovir 400 mg tablet take 1 tablet by oral route three times a day for 10 days and then decrease to twice daily - Active Lidocaine Viscous 2 % mucosal solution take 10 milliliter by oral route every 6 hours and swish and spit out 10 milliliter - Active Calcium 600 + D(3) 600 mg calcium-200 unit capsule take 1 by Oral route every day 1 - Active Multiple Vitamin, Womens tablet one by mouth daily - Active Procedures Procedure Date FECAL GLOBULIN (FOBT) FALL RISK ASSESSMENT DOC'D PRES/ABSN URINE INCON ASSESS CBC, INC PLATELETS AND DIFFERENTIAL COMPREHEN METABOLIC PANEL CMP 0 LIPID PANEL URINALYSIS, REFLEX (UA) ROUTINE VENIPUNCTURE OFFICE [id number] BODY MASS INDEX DOCD SYST BP GE 130 - 139MM HG DIAST BP < 80 MM HG OFFICE [id number] BODY MASS INDEX DOCD SYST BP GE 130 - 139MM HG DIAST BP 80-89 MM HG OFFICE [id number] BODY MASS INDEX DOCD SYST BP LT 130 MM HG DIAST BP 80-89 MM HG FREE T4 (FT4) THYROID STIMULATION HORMONE(TSH) 2018 ROUTINE VENIPUNCTURE Pt inelig neg scrn depres IMMUN ADMIN (INC PERCUTANEOUS) SINGLE, F IRST INJ TDAP INTRAMUSCULAR USE COMPREHEN METABOLIC PANEL CMP 9 LIPID PANEL THYROID STIMULATION HORMONE(TSH) 2018 URINALYSIS, REFLEX (UA) ROUTINE VENIPUNCTURE OFFICE [id number] BODY MASS INDEX DOCD SYST BP GE 130 - 139MM HG DIAST BP < 80 MM HG Advance Directives Directive Yes / No Effective Date File Name No Information Encounters Encounter Description Practice Location Reason(s) For Visit Diagnoses Date Provider Providers Copied on Encounter [employer], [address], [place], [place], [address] , [place] tel: [phone] [facility] No Information 1 Serena Joseph. [address] [place] [address], [place], [place], [id number], [place]. tel:[phone] [facility], [address], [place], [place], [address] , [place] tel: [phone] [facility] Internal Medicine No Information 1 Serena Joseph. [facility] [place], [place], [id number], [place]. tel:[phone] [facility], [address], [place], [place], [address] , [place] tel: [phone] [facility] Internal Medicine Screening mammogram, encounter for 0 Jeevan Garcia. [address] [place] [address], [address], [place]. tel:[phone] [facility], [address], [place], [place], [address] , [place] tel: [phone] [facility] Encounter for screening for malignant neoplasm of colon Jul- 0 Serena Joseph. [address] [place] [address], [id number], [place]. tel:[phone] Referring Provider: Jake ventura, [address] [place] [address], [address] . tel:[phone] OFFICE [id number]-[id number] [facility], [address], [place], [place], [address] , tel: [phone] [facility] Internal Medicine Chronic Conditions (chief complaint) Polyosteoarthr itis, unspecifiedEss ential (primary) hypertensionOt her nonthrombocyto penic purpuraMorbid (severe) obesity due to excess caloriesEncoun ter for screening mammogram for malignant neoplasm of breastScreenin g for malignant neoplasm of colonAcute midline low back pain without sciatica Sep-2 0 Jeevan Garcia. [address] [place] [address], [address], [place]. tel:[phone] Referring Provider: Jake ventura, [address] [place] [address], [address] . tel:[phone] [facility], [address], [place], [place], [address] , [place] tel: [phone] [facility] Internal Medicine No Information 0 Serena Joseph. [address] [place] [address], [id number], [place]. tel:[phone] [facility], [address], [place], [place], [address] , [place] tel: [phone] [facility] Herpesviral vesicular dermatitis 0 Serena Joseph. [address] [place] [address], [id number], [place]. tel:[phone] [facility], [address], [place], [place], [address] , tel: [phone] [facility] Recurrent aphthous ulcerHerpesvir al vesicular dermatitis 0 Serena Joseph. [address] [place] [address], [id number], [place]. tel:[phone] OFFICE [id number]-ZQ [facility], [address], [place], [place], [address] , [place] tel: [phone] [facility] Office Visit (chief complaint)C hronic Conditions (chief complaint) Body mass index (BMI) 36.0-36.9, adultHerpesvir al vesicular dermatitisEsse ntial (primary) hypertensionCh ondromalacia, left kneeOther meniscus derangements, other lateral meniscus, left kneeSubcutaneo us lipoma 0 Serena Joseph. [address] [place] [address], [id number], [place]. tel:[phone] Referring Provider: Jake ventura, [address] [place] [address], [address] . tel:[phone] [facility], [address], [place], [place], [address] , [place] tel: [phone] [facility] No Information 9 Serena Joseph. [address] [place] [address], [id number], [place]. tel:[phone] OFFICE [id number]-[id number]-ZJ [facility], [address], [place], [place], [address] , tel: [phone] [facility] Lesions (chief complaint) Recurrent aphthous ulcer 9 Serena Joseph. [address] [place] [address], [id number], [place]. tel:[phone] Referring Provider: Jake ventura, [address] [place] [address], [address] . tel:[phone] [facility], [address], [place], [place], [address] , tel: [phone] [facility] Other specified abnormal findings of blood chemistry 9 Serena Joseph. [address] [place] [address], [id number], [place]. tel:[phone] Referring Provider: Jake ventura, [address] [place] [address], [address] . tel:[phone] [place] [address], [address], [place], [place], [address] , [place] tel: [phone] [facility] Elevated TSH 9 Serena Joseph. [address] [place] [address], [id number], [place]. tel:[phone] OFFICE [id number] [facility], [address], [place], [place], [address] , tel: [phone] [facility] 6 month (chief complaint)C hronic Conditions (chief complaint) Body mass index (BMI) 37.0-37.9, adultEssential (primary) hypertensionMi xed hyperlipidemia Polyosteoarthr itis, unspecifiedOth er nonthrombocyto penic purpuraHerpesv iral vesicular dermatitisPunc ture wound of finger of left hand, initial encounter 9 Serena Joseph. [address] [place] [address], [id number], [place]. tel:[phone] Referring Provider: Jake ventura, [address] [place] [address], [place], [address] . tel:[phone] [facility], [address], [place], [place], [address] , [place] tel: [phone] [facility] Essential (primary) hypertensionRe fused pneumococcal vaccineMammogr am declinedPolyos teoarthritis, unspecifiedMix ed hyperlipidemia Obesity, unspecified 9 Serena Joseph. [address] [place] [address], [place], [place], [id number], [place]. tel:[phone] Referring Provider: Jake ventura, [address] [place] [address], [place], [address] . tel:[phone] [facility], [address], [place], [place], [address] , [place] tel: [phone] [facility] Primary osteoarthritis of right knee 9 Serena Joseph. [address] [place] [address], [id number], [place]. tel:[phone] [facility], [address], [place], [place], [address] , [place] tel: [phone] [facility] Essential (primary) hypertensionPr imary osteoarthritis of right kneeMixed hyperlipidemia Mammogram declinedRefuse d pneumococcal vaccineMorbid (severe) obesity due to excess caloriesSenile purpura 8 Michael Garcia. [address] [facility], [address], [place], [place], [address]. tel:[phone] Referring Provider: Jose Rodriguez, [address] [facility] [address] [place] [address], [address] . tel:[phone] [facility] [employer], [address], [place], [place], [address] , tel: [phone] [facility] Essential (primary) hypertensionPr imary osteoarthritis of right kneeMixed hyperlipidemia Mammogram declinedRefuse d pneumococcal vaccineSenile purpuraObesity (BMI 30-39.9) 8 Michael Garcia. [address] [facility], [address], [place], [place], [address]. tel:[phone] Referring Provider: Jose Rodriguez, [address] [facility] [address], [place], [address] . tel:[phone] [facility], [address], [place], [place], [address] , tel: [phone] [facility] Essential (primary) hypertensionPr imary osteoarthritis of right kneeMorbid (severe) obesity due to excess caloriesMixed hyperlipidemia Senile purpura 7 Michael Garcia. [address] [facility], [address], [place], [place], [address]. tel:[phone] Referring Provider: Jose Rodriguez, [address] [facility] [address], [place], [address] . tel:[phone] [facility], [address], [place], [place], [address] , tel: [phone] [facility] Essential (primary) hypertensionPr imary osteoarthritis of right kneeMorbid (severe) obesity due to excess caloriesMixed hyperlipidemia 3 7 Michael Garcia. [address] [facility], [address], [place], [place], [address]. tel:[phone] Referring Provider: Jose Rodriguez, [address] [facility] [address], [place], [address] . tel:[phone] [employer] [employer], [address], [place], [place], [address] , tel: [phone] [facility] Essential (primary) hypertensionPr imary osteoarthritis of right kneePure hypercholester olemiaMorbid obesity due to excess calories Sep-1 2-201 6 Michael Garcia. [address] [facility], [address], [place], [place], [address]. tel:[phone] Referring Provider: Jose Rodriguez, [address] [facility] [address], [place], [address] . tel:[phone] [facility], [address], [place], [place], [address] , tel: [phone] [facility] History of humerus fracture Jan-1 4-201 6 Michael Garcia. [address] [facility], [address], [place], [place], [address]. tel:[phone] [facility], [address], [place], [place], [address] , tel: [phone] [facility] Essential (primary) hypertensionAt herosclerosis of aortaOsteoarth ritis of knee, unspecifiedHis tory of humerus fractureMorbid obesity due to excess caloriesBMI 36.0-36.9,adul t Mar-0 3-201 6 Michael Garcia. [address] [facility], [address], [place], [place], [address]. tel:[phone] Referring Provider: Jose Rodriguez, [address] [facility] [address], [place], [address] . tel:[phone] [facility], [address], [place], [place], [address] , [place] tel: [phone] [facility] Fracture of right shoulder with routine healing Mar-0 2-201 6 Michael Garcia. [address] [facility], [address], [place], [place], [address]. tel:[phone] [facility], [address], [place], [place], [address] , [place] tel: [phone] [facility] Acute pain of right shoulder Feb-0 5-201 6 Michael Garcia. [address] [facility], [address], [place], [place], [address]. [phone] [facility], [address], [place], [place], [address] , tel: [phone] [facility] Pain in unspecified knee 0 5 Rodriguez Jose. [address] [facility] [address], [address], [place], [place], [address]. tel:[phone] [facility], [address], [place], [place], [address] , tel: [phone] [facility] HypertensionAo rtic atherosclerosi sHiatal herniaMorbid obesityBMI 38.0-38.9,adul tOsteoarthriti s of right knee 5 Rodriguez Jose. [address] [facility] [address], [address], [place], [place], [address]. tel:[phone] Referring Provider: Jose Rodriguez, [address] [facility] [address], [place], [address] . tel:[phone] [facility], [address], [place], [place], [address] , tel: [phone] [facility] HypertensionAo rtic atherosclerosi sHiatal herniaMorbid obesityFAMILY HX-BREAST MALIGOsteoarth ritis of right knee 5 Rodriguez Jose. [address] [facility] [address], [address], [place], [place], [address]. tel:[phone] Referring Provider: Jose Rodriguez, [address] [facility] [address], [place], [address] . tel:[phone] [facility], [address], [place], [place], [address] , [place] tel: [phone] [facility] HypertensionHi atal herniaAortic atherosclerosi sMorbid obesityBMI 40.0-44.9, adultOsteoarth ritis of right knee 4 Rodriguez Jose. [address] [facility] [address], [address], [place], [place], [address]. tel:[phone] Referring Provider: Jose Rodriguez, [address] [facility] [address], [place], [address] . tel:[phone] [facility] [employer], [address], [place], [place], [address] , tel: [phone] [facility] History of fall/At Risk For FallingHistory of colon resectionDiver ticulosisHyper tensionOsteoar thritis of right kneeAnnual physical examMorbid obesityAdult body mass index 40.0-44.9Routi ne Medical ExamHiatal hernia 3-201 4 Rodriguez Jose. [address] [facility], [address], [place], [place], [address]. tel:[phone] Referring Provider: Jose Rodriguez, [address] [facility] [address], [place], [address] . tel:[phone] [facility] [employer], [address], [place], [place], [address] , tel: [phone] [facility] No Information Sep-0 6-201 1 Rodriguez Jose. [address] [facility], [address], [place], [place], [address]. [phone] [facility] [employer], [address], [place], [place], [address] , tel: [phone] [facility] GENERAL OSTEOARTHROSIS ROUTINE MEDICAL EXAMBACKACHE NOSVENTRAL HERNIA NEC Noe-0 8-200 9 Rodriguez Jose. [address] [facility], [address], [place], [place], [address]. [phone] [facility] [employer], [address], [place], [place], [address] , tel: [phone] [facility] MALIGNANT BLAISE COLON NOSDVRTCLO COLON W/O HMRHGDVRTCLI COLON W/O HMRHGPOST-PROC STATES NECABRASION TRUNKFAMILY HX-BREAST MALIGADRENAL DISORDER NECVACCINATION FOR TD-DT Dec-0 8-200 8 Rodriguez Jose. [address] [facility], [address], [place], [place], [address]. tel:[phone] [facility], [address], [place], [place], [address] , [place] tel:[phone] [facility] FEVERURIN TRACT INFECTION NOSLEG VARICOSITY W INFLAM 5-200 8 Rodriguez Jose. [address] [facility], [address], [place], [place], [address]. tel:[phone] [facility], [address], [place], [place], [address] , [place] tel:[phone] [facility] ENDOCRINE/NERV BLAISE NOS Sep 8-200 3 Rodriguez Jose. [address] [facility], [address], [place], [place], [address]. tel:[phone] [facility], [address], [place], [place], [address] , [place] tel: [phone] [facility] OBESITY NOS 3-200 3 Rodriguez Jose. [address] [facility], [address], [place], [place], [address]. tel:[phone] [facility], [address], [place], [place], [address] , [place] tel:[phone] [facility] SCIATICA Apr-0 9-200 2 Rodriguez Jose. [address] [facility], [address], [place], [place], [address]. tel:[phone] [facility], [address], [place], [place], [address] , [place] tel:[phone] [facility] SCREEN MAL NEOP OTH SITE Aug-0 6-200 1 Rodriguez Jose. [address] [facility], [address], [place], [place], [address]. tel:[phone] [facility], [address], [place], [place], [address] , [place] tel:[phone] [facility] HYPOTHYROIDISM NOS 3-200 1 Rodriguez Jose. [address] [facility], [address], [place], [place], [address]. tel:[phone] [facility], [address], [place], [place], [address] , [place] tel: [phone] [facility] JOINT PAIN-UP/ARM 1 [facility]. [address] [place], [address], [place]. [facility] [employer], [address], [place], [place], [address] , tel: [phone] [facility] DERMATITIS NOSNONSPECIF SKIN ERUPT NEC 1 [facility]. [address] [facility], [place], [address], [place]. Family History Family Member Type Diagnosis Age At Onset Father Problem (finding) chronic obstructive sonia g disease 69 Sister Problem (finding) malignant neop lasm of breast in first degree relative 49 Brother Problem (finding) pulmonary emphysema Mother Problem (finding) coronary arterioscleros is Mother Problem (finding) hypertension Immunizations Vaccine Date Status Comments Tdap administered Source: New Imm unization Record Pneumococcal conjugate PCV 13 refused Source: New Immunization Record Influenza, injectable, quadrivalent, preservative free, 3 yrs or older refused Source: New Immuniz ation Record 00860 - TD administered Source: Source Unspecified Payers Payer name Insurance type Covered libertarian ID Authoriza tion(s) [employer] [place] [id number] [employer] [place] [id number] [employer] [place] [id number] [employer] [id number] Social History Type Description Quantity Date Captured Comments Sex Female Smoking Status No Information Chief Complaint And Reason For Visit No Information Reason For Referral Reason For Referral No Information Plan Of Treatment Date Type Action Status Goal Dietary manageme nt education, guidance, and counseling completed Goal Dietary manageme nt education, guidance, and counseling completed Referral Referred To: [address] [place], [id number] Ordered: SCREENING MAMMOGRAM (CAD) Appointment date/timeframe: 05/22/2021 ordered Referral Referred To: Yajaira Jules MD [address] [place], [phone] Ordered: Referrals: Gastroenterology. Yajaira Jules MD. Evaluation/diagnostic/treatment - Level 3 Appointment date/timeframe: 05/22/2021 ordered Referral Ordered: Homero Mohamud -Dermatology (related to Herpesviral vesicular dermatitis) ordered Referral Referred To: Homero Mohamud [address] [place], [phone] Ordered: Referrals: Dermatology. Homero Mohamud. Evaluation/diagnostic/treatment - Level 3 ordered Referral Ordered: Sandeep Segundo MD -Otolaryngology (related to Herpesviral vesicular dermatitis) ordered Referral Referred To: Sandeep Segundo MD [address] [facility]
[address] [place], [phone] Ordered: Referrals: Otolaryngology. Sandeep Segundo MD. Evaluation/diagnostic/treatment - Level 3 ordered Referral Ordered: Kennedy Krueger MD -Orthopedic Surgery (related to Chondromalacia, left knee) ordered Patient Education Canker Sore: Care Instr uctions completed History Of Present Illness Encounter Date Complaint History Of Prese nt Illness Chronic Conditions *See Chronic Conditions HPI Office Visit Sores constantly returning in mouth When at work shes beginning to get alot david horses- recommended she increase fluids as she may be dehydrated from drinking less water at work.Lump on back of left calf- this has been seen by ortho, was not on MRI done in June.- mild pain, mobile, no redness or erythema, fluctuance Chronic Conditions *See Chronic Conditions HPI Lesions Here today to re evaluate lesions in her mouth. has some lesions in the front of her gums, no redness, mostly white aphthous ulcers. no other lesions mentioned. no fevers or chills 6 month Patient states t hat she keeps getting sores on gums right above teeth causing her lips to burn and blister at times. Comes and Goes. does have a history of cold soresDiscuss MRI on Left knee - i have not received this and patient has yet to follow up with Dr. Krueger for discussion of therapeutic options. Chronic Conditions *See Chronic Conditions HPI Functional Status Date Functional Assessmen t No Information Instructions Date Instruction Additional Infor matjudith I will send you some muscle relaxers to see if this helps.we discussed that this can cause you to feel drowsytake in the evening to see how you feel on this medicationdo not mix with alcohol. be careful taking with hydrocodone.Call with any questions or concernscbc, cmp, lipids, ua todayfit testyou decline vaccinesreturn in 4-6 months Continue with social distancing.AVOID CROWDS, STAY 6 FEET APART FROM OTHERS OUTSIDE YOUR HOUSEHOLD, WEAR A MASK, AVOID TOUCHING YOUR FACE, AVOID UNNECESSARY TRAVEL. WASH HANDS OFTEN. CALL WITH QUESTIONS/CONCERNS Related to Acute midline low back pain without sciatica fit test Related to Scree sanaz for malignant neoplasm of colon You are agreeable to going to the freestanding breast imaging place in [place]- I am unsure if they still do mammograms but I will look into this and send orderplease get this done In August Related to Encounter for screening mammogram for malignant neoplasm of breast Narcotic agreement s ignedI can only give you 7 day supplycall if you need this refilled and we can give you a 1 month supply, or 60 pills. 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 Related to Body mass index (BMI) 36.0-36.9, adult Continue meloxicam a nd follow up with Dr. Krueger as scheduled. 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 Related to Subcutaneous lipoma as above Related to Other meniscus derangements, other lateral meniscus, left knee At this time we will change to acyclovir - 400mg three times a day for 10 days then decrease to twice a day. Related to Herpesviral vesicular dermatitis Your blood pressure is well controlled. Please monitor your blood pressure at home at least once a week or anytime you are feeling dizzy or light headed. Continue the same medications at this time. Related to Essential (primary) hypertension Dietary management e ducation, guidance, and counseling Related to Body mass index (BMI) 36.0-36.9, adult At this time we will continue prophylactic valcyclovir and i recommend you start oragel as needed for pain Related to Recurrent aphthous ulcer At this time we will start as needed valacyclovir and if these occur more than every few months, we will start suppressive therapy. Related to Herpesviral vesicular dermatitis Please work on calor ie reduction and regular physical activity,. Related to Body mass index (BMI) 37.0-37.9, adult Tdap today. Continue to monitor for acute signs of infection. Related to Puncture wound of finger of left hand, initial encounter continue with daily moisturizers and skin precautions. 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 Related to Essential (primary) hypertension Dietary management e ducation, guidance, and counseling Related to Body mass index (BMI) 37.0-37.9, adult Assessments Type Assessment Date No Information Patient Care Teams Name Effective Dates (start - stop) Status Members No Information
[2025-07-26 12:20] VITALS: BMI 35.1
--- NOTE | 2025-07-26 12:35 | PC.NURSE ---
Report to the Outpatient Waiting Room, entrance under the green pavilion located off [facility], at time _11:00am on date __08/07/25 . Planned Procedure Time: _1:00pm .? Time changes happen often and if your time is changed the preop area will call you the afternoon before. - You and your visitor will be asked to self-screen and do not enter if you have any COVID symptoms. Please call surgeon if you need to reschedule. - A mask is optional within the hospital at this time. Patients may have clear liquids (water, carbonated beverages, clear teas, apple juice) until 3 hours prior to surgery with a maximum of 20 ounces. - No food from midnight until time of surgery and no smoking, or chewing tobacco (or any form of nicotine). No chewing gum, candy or mints. (1000am) Take only the following medications with a SIP of water on the morning of surgery: ___Gabapentin DO NOT STOP ANY OF YOUR OTHER PRESCRIPTION MEDICATIONS PRIOR TO SURGERY EXCEPT THE FOLLOWING Hold all vitamins and supplements for 3 days per anesthesiologist. Medications to discontinue per physician Meloxicam - pt to Check with Dr. Carlos regarding holding it preop if needed Date to take last dose___Pending Please no make-up, nail luxembourger, hairspray, perfume, deodorant, or body powder the day of surgery.? No jewelry (including any body piercings) or valuables the day of surgery, leave them at home.? Please take a shower or bath the night before, or the morning of, surgery with an antibacterial soap.?(GOLD DIAL) Wear comfortable, loose fitting clothing.? Overnight bag, cane or wheelchair, tennis shoes/good shoes. - Jewelry must be removed prior to entering the operating room.? Rings and piercings that are not removed may be cut off. - The hospital will not accept responsibility for valuables.? - Please leave all valuables, including medications, at home the day of surgery. If you are going home after surgery, a licensed transporter driver must drive you home.? - NO public transportation without another adult if you receive anesthesia. - We recommend that an adult stay with you for 24 hours following discharge. - We also recommend that you do not drive, make important decision, drink alcoholic beverages, or take any drugs that were not prescribed by your health care provider for at least 24 hours after your discharge time. Follow any additional instructions given to you from your surgeon. Telephone instructions given to ___Patient and asked if any additional questions and then verbalized understanding. Patient advised to call surgeon office or pre surgery nurse liaison [phone] if any additional questions.
--- NOTE | 2025-08-05 16:34 | P.SS_ITS ---
Same Day Admit/Disch: HPI History of Present Illness Chief complaint: incarcerated recurrent incisional hernia 6 cm Narrative: Mickie Gotti is a 79 year old female who has a tender periumbilical bulge. This causes her to have pain and sometimes nausea and vomiting. CT scan showed her to have a recurrent incisional hernia just cephalad to previous mesh placed for repair of incisional hernia. In the office, she was found to have an incarcerated recurrent umbilical hernia just above the umbilicus. History shows that she had a laparoscopic adhesiolysis with mesh repair of incisional hernia years ago. She then had to have a colon resection for diverticulitis. The mesh was removed at the same time as this colon resection. She then developed the hernia again and another laparoscopic hernia repair with mesh was performed. On her CT scan, the hernia appears to be only 3 cm in width but is 6 cm in length. She is taken to surgery at this time for robotic laparoscopic adhesiolysis and repair of incarcerated recurrent incisional hernia. REPLACED BY [facility] Past Medical History Medical History Hypertension Arthritis Surgical History Surgical History History of partial colectomy For treatment of diverticulitis History of incisional hernia repair x2 - both times repaired with mesh. History of partial hysterectomy Vaginal History of cholecystectomy ~ 1967- open cholecystectomy Family History Family History Father Asthma Son No problems noted. Sibling Cancer Son Diabetes mellitus Mother Heart disease Social History Social History Smoking packs per day: 0.5 Smoking cigarettes per day: 10.0 Years smoked: 32 Smoking pack-years: 16.00 Smoking status: Former smoker Tobacco type: cigarettes Second hand tobacco smoke exposure: Yes Smoking end date: 11/22/93 Alcohol intake: former Substance use: never Substance use type: does not use Do You Feel Safe in your Home?: Yes Lack of Transportation: No Lack of Food: Never True Current Housing: I Have Housing Concerned About Future Housing: No Difficulty Paying Gas/Electric Bills: No Difficulty Paying for Meds: No Currently Unemployed: No Education: Grade School Difficulty w/ Childcare or Family Care: No Living arrangements: with family Occupation/Education: retired Spiritual care concerns: No Same Day Admit/Disch: Med Pre-admit Medications Home Medications ?Medication ?Instructions ?Recorded ?Confirmed ?Type lisinopril 10 mg tablet 10 mg PO HS 07/03/24 5 History gabapentin 300 mg capsule 300 mg PO Q8H 06/18/2508/07 History meloxicam 15 mg tablet 15 mg PO DAILY 06/18/2507/23 History Review of Systems Review of Systems All systems reviewed & are unremarkable except as noted in HPI and below ( HPI) Exam Const: General: comfortable, no acute distress, alert and awake HENMT: Head: normocephalic and atraumatic Mouth: Yes Normal oral and palatal mucosa present Eyes: Conjunctivae: conjunctivae normal Pupils: Equal, round and reactive pupils present EOM: EOMs intact bilaterally Neck: Neck: normal visual inspection, no lymphadenopathy and nontender Resp: Effort & Inspection: normal respiratory effort Auscultation: clear to auscultation bilaterally Cardio: Rate: regular rate Rhythm: regular rhythm Heart sounds: no gallops, no murmurs and no rubs GI: Inspection: non-distended, obesity, scar and visible herniation GI Palp: Yes Soft to palpation, Yes Tenderness to palpation present (GI), No Hepatomegaly present, No Splenomegaly present and Yes Hernia present ( non reducible incisional hernia) incisional 3-10 cm ( difficult to palpate but defect seems about 5 cm. Incarceration makes palpation difficult) Auscultation: normal bowel sounds Skin: Lesions: no lesions Rashes: no rashes Neuro: General: no focal motor deficits and CN's II-XI intact bilaterally Cranial nerves: Yes Equal, round and reactive pupils present, Yes Bilaterally intact EOM present, Yes facial symmetry and Yes Midline tongue present Speech: normal speech Motor exam (neuro): 5/5 motor strength present throughout and Motor abnormalities not present Extrem: General: no clubbing, cyanosis or edema and edema Psych: Affect: normal affect Thought process: Normal thought process present Insight: Good insight present (Psych) DS: Data Imaging Attestation: I personally reviewed and interpreted this imaging study as follows: ( CT scan abdomen and pelvis) My impression: previously placed hernia mesh easily identified. Hernia defects cephalad to this mesh noted and measure by CT scan to be 6 cm in length but only 3 cm in width. There is also a large hiatal hernia and a left inguinal hernia. No other significant findings. Radiologist's impression: Impression: Large hiatal hernia. Moderate fat-containing ventral hernia, neck just superior to prior h erniorrhaphy mesh. Intrahepatic and extra hepatic dilatation is probably related to prior cholecystectomy. Multiple compression fractures, as detailed above. DS: Summary Hospital Course Hospital Course: Patient was unable to have robotic laparoscopic hernia repair. Her adhesions were too extensive and she had many more hernias then were evident on her exam or CT scan. I explained this to her on the morning of discharge. She was comfortable and had not taken really anything for pain. She was tolerating oral intake and wished to go home. She is discharged today in good condition. She will follow-up with me and we will discuss open repair with component separation in the office after she has recovered further. Status at Discharge Functional status at discharge: uses cane/walker Overall status at discharge: patient is progressing back to baseline Time Spent with Patient Time attestation: Total time spent providing and/or coordinating discharge services: Time spent: Less than 30 minutes DS: Admitting Diagnosis Discharge Date 08/08/2025 Admitting Diagnosis * Incarcerated re recurrent incisional hernia - defect measures 6 cm in length and about 3 cm in width. It is quite symptomatic. After discussion, we plan to proceed with robotic laparoscopic repair of this recurrent, x2, incisional hernia that is now incarcerated. Procedure, risks, benefits, alternatives have been discussed. The usual length of the hernia surgery, the length of recovery, and the use of additional mesh have been discussed. All questions were answered. Patient understands and agrees to go ahead. * Asymptomatic left inguinal hernia * large hiatal hernia * essential hypertension DS: Discharge Diagnosis Discharge Diagnosis (1) Inguinal hernia of left side without obstruction or gangrene: Code(s): K40.90 - Unilateral inguinal hernia, without obstruction or gangrene, not specified as recurrent Status: Chronic Assessment and Plan: Noted at surgery. (2) Recurrent incisional hernia with incarceration: Code(s): K43.0 - Incisional hernia with obstruction, without gangrene Status: Chronic Assessment and Plan: Unable to repair as described above (3) Hypertension: Qualifiers: Hypertension type: primary hypertension Qualified Code(s): I10 - Essential (primary) hypertension Code(s): I10 - Essential (primary) hypertension Status: Chronic Discharge Plan Discharge Patient Disposition: Home Discharge Instructions: * Okay to gradually resume normal activities. * Resume usual home diet. * May shower or bathe tomorrow, please wash over incisions with soap and water. * See Dr. Carlos in 1-2 weeks for follow-up * Call for severe abdominal pain, persistent drainage or bleeding from wound incisions, temp over 100.5, or other significant change in condition. * Take Tylenol or ibuprofen as needed for any incisional pain. * Continue your usual home medications. Patient Language: [place] Stand Alone Forms: General Discharge Instructions Follow-up/Referrals: Cornelio Carlos MD [Physician, General Surgery] - 1 Week Referral Note: Call for appointment Discharge Medications: Continued lisinopril 10 mg tablet 10 mg PO HS meloxicam 15 mg tablet 15 mg PO DAILY gabapentin 300 mg capsule 300 mg PO Q8H
[2025-08-07] VITALS (12 sets, daily range): BP systolic 117–162; BP diastolic 59–84; PULSE 72–102; RESP 12–18; TEMP 35.9–37; O2SAT 92–100
--- OUTSIDE RECORDS SUMMARY | 2025-08-07 00:23 | XMS_ITS | Clinical Summary ---
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 Role Phone Ilda Garcia NP Primary Care Provider [phone] Berhane Peterson MD Unavailable [phone] Bret Denny MD Unavailable Allergies Active Allergy Reactions Criticality Noted Date Comments Penicillins Rash Reaction: Rash, Sulfa (Sulfonamide Antibiotics) Hives,Rash Reaction: HIVES, Reaction: Rash, Medications calcium carb and citrate-vitD3 600 mg-12.5 mcg (500 unit) tablet extended release Take 600 mg by mouth daily Active cholecalciferol (VITAMIN D-3) 5,000 unit tablet Ac tive multivitamin tabletIndications: Vitamin Deficiency Prevention Take 1 tablet by mouth [...] BY MOUTH EVERY DAY 100 tablet 1 12/13/19 25 Active ibandronate (BONIVA) 150 mg tabletIndications: Localized osteoporosis with current pathological fracture, initial encounter,Osteoart hritis of multiple joints, unspecified osteoarthritis type,Primary osteoarthritis of knees, bilateral Take 1 tablet (150 mg total) by mouth every 30 (thirty) days Take in AM with glass of water prior to food, don't lie down for 30 minutes. 3 tablet 1 02/07/20 25 026 Active Additional Information Patient not taking.Reported on 05/29/2025 lisinopriL (PRINIVIL,ZESTRIL) 10 mg tablet TAKE 1 TABLET BY MOUTH EVERY DAY 90 tablet 3 05/21/20 25 Active gabapentin (NEURONTIN) 300 mg capsuleIndications :Neuropathic Pain Take 1 capsule (300 mg total) by mouth 3 (three) times a day 270 capsule 06/27/20 25 025 Active Active Problems Problem Noted Date Diagnosed Date [...] osteoporosis Assessment & Plan (10/26/2024 8:19 AM ENDOSCOPY TECH): This is a significant, separately identifiable problem that was evaluated and managed on the same day as the wellness exam Obesity (BMI 30-39.9) 10/25/2024 Assessment & Plan (04/25/2025 9:51 AM CDT): Discussed the patient's BMI. The BMI is above average. BMI management plan is completed. BMI Follow-up includes: nutrition counseling, exercise counseling and education provided. Assessment & Plan (10/25/2024 10:29 AM ENDOSCOPY TECH): Discussed the patients BMI: The BMI is [...] Declines medication. [facility]. Lipoma of left lower extremity [...] Diagnosed Date Resolved Date BMI 38.0-38.9,adult 04/25/2025 07/08/20 25 Assessment & Plan (04/25/2025 9:51 AM [...] 023 Assessment & Plan (11/04/2022 8:15 AM ENDOSCOPY TECH): Obesity is unchanged. Discussed the patient's BMI. The BMI is above average. BMI management plan is completed. BMI Follow-up includes: nutrition counseling, exercise counseling and education provided. Morbid obesity with BMI of 40.0-44.9, adult 11/04/2022 03/24/2023 Assessment & Plan (11/04/2022 8:16 AM ENDOSCOPY TECH): Obesity is unchanged. Discussed the patient's BMI. [...] and education provided. BMI 36.0-36.9,adult 03/17/2021 09/18/20 Assessment & Plan (03/17/2021 8:17 AM CDT): [...] Encounters Date Type Department Care Team Description 06/13/2025 Telephone [facility] Medicine [address] [place] [address] [place] [phone] Ilda Garcia NP Medical Records Request 06/13/[address] [place] [phone] Ilda Garcia NP Referral Request 06/08/2025 Orders Only [facility] Health Information Management [address] [place], [place] [id number] Ilda Garcia NP 05/29/2025 10:00 AM CDT Office Visit [address] [place] [phone] Ilda Garcia NP Hiatal hernia (Primary Dx); BMI 37.0-37.9, adult; Obesity (BMI 30-39.9) from Last 3 Months [...] History Date Comments Hypertension COPD (chronic obstructive pulmonary disease) Arthritis Major depressive disorder PATIEN T DENIES. [...] on file Legal Sex Female 12:48 AM ENDOSCOPY TECH Gender Identity Not on file Sexual Orientation [...] 65+ Discontinued Medical Devices Implanted Type Area Internet Sales Consultant Device Identifier Shelf Expiration Date Model / Serial / Lot ChartCubetaplex Hv Autoplex Without Needle Delivery System Kit Bone [id number] - [id number] Implanted:Qty : 1 on 09/05/2024 by Bret Denny MD at [facility] N/A: Spine Lumbar [employer] [id number] 06/22/2025 [id number] / / [id number] Description:Cement Ref [phone]; Lot [id number]; Expiration 07-22-2025 [employer]global [employer] Resourcestaplex Hv Autoplex Without Needle Delivery System Kit Bone [id number] - [id number] Implanted:Qty : 1 on 09/19/2024 by Bret Denny MD at [facility] N/A: Spine Lumbar Ziggy [employer] [id number] 06/22/2025 [id number] / / [id number] Description:[id number] 10/21/2025 Explanted Type Area Internet Sales Consultant Device Identifier Shelf Expiration Date Model / Serial / Lot Riley Medical Avamax Od13 Ga L10 Mm Balloon Tray Bone Cement [id number] - [id number] Explanted:Qty : 2 on 09/05/2024 by Bret Denny MD at [facility] N/A: Spine Lumbar [employer] [id number] 12/29/2025 [id number] / / [id number] Description:Not an Implant Riley [employer] Avamax Od13 Ga L10 Mm Balloon Tray Bone Cement [id number] - [id number] Explanted:Qty : 1 on 09/19/2024 by Bret Denny MD at [facility] N/A: Spine Lumbar [employer] [id number] 09/21/2025 [id number] / / [id number] Ziggy Medical Avamax Od13 Ga L10 Mm Balloon Tray Bone Cement [id number] - [id number] Explanted:Qty : 1 on 09/19/2024 by Bret Denny MD at [facility] N/A: Spine Lumbar [employer] [id number] 09/21/2025 [id number] / / [id number] Procedures Procedure Name Priority Date/Time Associated Diagnosis Comments SCAN - RADIOLOGY/IMAGING 06/08/2025 HEPATITIS C ANTIBODY Routine 09/23/2022 8:57 AM CDT Encounter for hepatitis C screening test for low risk patient from Last 3 Months or Most Recently Relevant to Health Maintenance Results * SCAN - RADIOLOGY/IMAGING (06/08/2025) Anatomical Region Laterality Modality Other Ilda Garcia NP Final Result * Hepatitis C antibody (09/23/2022 8:57 AM CDT) Hep C Ab NON-REACTI VE NON-REACT CODI [facility] SIGNAL TO CUT-OFF 0.01 <1.00 [facility] Comment: HCV antibody was non-reactive. There is no laboratory evidence of HCV infection. In most cases, no further action is required. However, if recent HCV exposure is suspected, a test for HCV RNA (test code 71901) is suggested. For additional information please refer to http://education.[employer]/faq/SCR79w0 (This link is being provided for informational/ educational purposes only.) Blood 09/23/2022 8:57 AM CDT 09/23/2022 8:57 AM CDT Ilda Garcia NP LAB MICROBIOLOGY - GENERAL OR DERABLES Final Result Performing Organization Address City/State/[facility] Co in Phone Number [facility] [address] [place] [address] from Last 3 Months or Most Recently Relevant to Health Maintenance Insurance [facility] Care Teams Horticultural Farmworker Relationship Specialty Start Date End Date Ilda Garcia, ANNIE [address] [facility] [address] [place] [address] PCP - General Internal Medicine 03/24/23 Berhane Peterson MD [address] [facility] [address] [address] Consulting Physician Internal Medicine 08/31/24 Bret Denny MD [address] [facility] [address] Consulting Physician Pain Management 08/31/24
--- NOTE | 2025-08-07 10:39 | WPDHPUPDATE1 ---
History and Physical Update Update Date/Time: 08/07/25 10:39 History and Physical has been reviewed, including an updated exam of the patient. There are NO changes in the patient's condition. Risks, benefits, and alternatives have been discussed and questions answered. Patient agrees to proceed with procedure.
[2025-08-07] MEDS: ACETAMINOPHEN 500 MG TABLET 1000 MG PO (12:11)
[2025-08-07] MEDS: KETOROLAC 15 MG/ML VIAL (*BKC) IV PUSH (12:12)
[2025-08-07] MEDS: LACTATED RINGERS 1,000 ML 30 ML IV CONT ×2 (12:12→15:21)
--- NOTE | 2025-08-07 12:42 | WPDANESEPPF ---
Anes - Initial Pre Proc Eval Procedure: Operation Date: 08/07/25 13:00 Proposed Procedures p Robotic Assisted Incarcerated Recurrent Incisional Hernia Repair with Mesh - Cornelio Carlos MD Date/Time: 08/07/25 12:42 Surgeon: Cornelio Carlos MD Pre Op Diagnosis: incarcerated recurrent incisional hernia 6 cm Patient Data Age: 79 Gender: F Height: 1.55 m Weight: 82.6 kg Last Vital Signs Temp 37.0 C 08/07/25 12:03 Pulse 72 08/07/25 12:03 Resp 16 08/07/25 12:03 BP 162/69 H 08/07/25 12:03 Pulse Ox 99 08/07/25 12:03 O2 Del Method Room Air 08/07/25 12:03 Allergies Allergy/AdvReac Type Severity Reaction Status Date / Time Penicillins Allergy Severe RASH Verified 08/07/25 12:21 Sulfa (Sulfonamide Allergy Severe RASH Verified 08/07/25 12:21 Antibiotics) Home Medications ?Medication ?Instructions ?Recorded ?Confirmed ?Type lisinopril 10 mg tablet 10 mg PO DAILY 07/03/24 08/07/25 History gabapentin 300 mg capsule 300 mg PO Q8H 06/18/25 08/07/25 History meloxicam 15 mg tablet 15 mg PO DAILY 06/18/25 08/07/25 History Patient hx anesthesia problems: none Family hx anesthesia problems: none Results Review: All pre-operative results and documents have been reviewed as part of the pre-operative evaluation. [facility] Past Medical History Medical History Hypertension Arthritis Surgical History Surgical History History of partial colectomy For treatment of diverticulitis History of incisional hernia repair x2 - both times repaired with mesh. History of partial hysterectomy Vaginal History of cholecystectomy ~ 1967- open cholecystectomy Family History Family History Father Asthma Son No problems noted. Sibling Cancer Son Diabetes mellitus Mother Heart disease Social History Social History Smoking packs per day: 0.5 Smoking cigarettes per day: 10.0 Years smoked: 22 Smoking pack-years: 11.00 Smoking status: Former smoker Tobacco type: cigarettes Smoking end date: 11/22/93 Alcohol intake: never Substance use: never Substance use type: does not use Do You Feel Safe in your Home?: Yes Lack of Transportation: No Lack of Food: Never True Current Housing: I Have Housing Concerned About Future Housing: No Difficulty Paying Gas/Electric Bills: No Difficulty Paying for Meds: No Currently Unemployed: No Education: Grade School Difficulty w/ Childcare or Family Care: No Living arrangements: with family Occupation/Education: retired Spiritual care concerns: No Anes - Eval Final PreProcedure Day of Procedure 08/07/25 12:42 Patient weight: obese Heart: regular rate and rhythm Lungs: clear to auscultation Airway: Mallampati scale class II Neurological: alert and oriented Last oral intake: >/= 8 hours ASA classification: III Emergent: no Anesthetic plan: proceed Anesthesia type and monitoring: general ETT and standard monitoring Results Review: All pre-operative results and documents have been reviewed as part of the pre-operative evaluation. Informed Consent: The patient's anesthetic plan and its attendant risks and benefits were discussed with the patient/family/POA. Questions were solicited and answers provided to the satisfaction of the patient/family/POA.
[2025-08-07] MEDS: ceFAZolin 2 GM in SODIUM CHLORIDE 0.9% IV 50 ML 100 ML IVPB (13:35)
[2025-08-07] MEDS: BUPIVACAINE/EPINEPHRINE 0.5% 50 ML VIAL 23 ML INFILTRATE (14:14)
--- NOTE | 2025-08-07 15:29 | P.OP_ITS ---
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 She has developed a re-recurrent incarcerated incisional hernia which is bothersome for her. CT scan showed a recurrent hernia just above the previous mesh. She is taken to surgery now for robotic laparoscopic repair of this re recurrent incisional hernia. Findings There were actually numerous recurrent hernias with dense anterior abdominal wall adhesions literally covering the inside of the abdomen. CT findings varied significantly from the intraoperative findings. Although we did perform some laparoscopic adhesiolysis, the extensive adhesions as well as multiple hernias could not safely be managed either laparoscopically or robotically. The procedure was thus aborted. Description of Procedure Patient was taken to surgery and induced into general anesthesia. Headley catheter was placed. The abdomen was prepped and draped. The initial trocar was a 5 mm applied Medical optical trocar in the left subcostal position. I was able to gain access to the peritoneal cavity without difficulty and proceeded with insufflation. Placing the camera here, it was difficult to keep the trocar within the abdominal cavity as the patient had an exceptional amount of redundant skin from previous weight loss. It was also evident that there were numerous adhesions as well as some additional hernias beyond that that was expected. We persevered and placed another 10 11 port laterally on the left side. This also was difficult to keep within the peritoneal cavity. Some adhesions were taken down to the anterior abdominal wall but many of these ad hesions were so she aided with hernia defects or previous mesh. They also contain bowel or portions of bowel. We took down the adhesions we could safely remove. We also took down adhesions on the left lateral portion of the abdominal wall such that the robotic ports could be placed. Under direct visualization, I converted the 2nd 5 mm applied Medical trocar for an 8 mm robotic trocar. We then placed a left lateral 8 mm robotic trocar as well as a left lower quadrant robotic 8 mm trocar. We then brought the robotic arms into the field. The camera was docked but when I tried to place the camera into the peritoneal cavity, the trocar had slipped back. We returned to the 5 mm camera and noted that all the robotic trocars had slipped back so that they were no longer in the peritoneal cavity. I then removed all the regular sized robotic trocars and replace them with extra long robotic trocars. These were positioned but we could not place them in the abdomen far enough to reach the point on the trocar that should be lying within the abdominal wall. This was due to the proximity of these numerous adhesions and hernias. After all the robotic trocars were placed, I replaced the initial 5 mm optical trocar with a an extra long 5 mm trocar. We then placed the camera at this trocar and, maintaining the camera trocar was in the abdominal cavity, docked the camera arm. I tried to place the camera in the peritoneal cavity but it was very close to the adhesions. This was the case even though I was very far lateral. I went ahead and tried to dock and position the other two robotic instruments. This was also accomplished but both of these were so close to the abdominal adhesions that there was no possibility that we could use the robot to take these adhesions down. We then removed these instruments and the camera and undocked the robot. Looking again at the initial 5 mm trocar and the adhesions that were present, it was apparent to me that this would require an open approach with component separation. Laparoscopic repair would be unsafe and likely to be unsuccessful. I had not discussed this at all with the patient. It is a significant departure from the surgery planned. I felt that it was the most prudent plan to simply abort this operation and discuss further plans with the patient at a later time. We then evacuated CO2 and removed any remaining trocar sleeves. Skin wounds were closed with subcuticular 4-0 Monocryl skin suture. The wounds were dressed with Exofin surgical adhesive. The patient was awakened and taken to recovery in good condition. Sponge and needle counts were correct x2. Estimated Blood Loss -5 Drains No Packing No Pathology None sent Complications None Condition Stable Disposition PACU [facility] Billing Surgery - Charge Forward: Surgery Billing (Laparoscopic adhesiolysis, attempted robotic laparoscopic hernia repair)
[2025-08-07] MEDS: fentaNYL CITRATE INJ (*CRX) 100 MCG/2 ML VIAL 25 MCG IV PUSH (15:32)
--- NOTE | 2025-08-07 17:33 | ADMGEN ---
This patient, Mickie Gotti, was admitted to [facility] Surg Room 307-02. Patient/family oriented to hospital policies and general routines including ID bracelet, bed and alarms, visiting hours, pain management, procedures, bathroom and other care routines, personal items, smoking policy, room service/diet, and visiting hours. Information on how to activate the Rapid Response Team has been discussed. Patient/Family are encouraged to report perceived risks to care and to ask questions if they do not understand what they are told or what they should do. Received report from Ligia PACUmani at bedside
[2025-08-07] MEDS: ENOXAPARIN 30 MG/0.3 ML SYRINGE SUB-Q (21:19)
[2025-08-07] MEDS: GABAPENTIN 300 MG CAPSULE PO (21:19)
[2025-08-07] MEDS: LACTATED RINGERS 1,000 ML 80 ML IV CONT (21:19)
[2025-08-07] MEDS: FAMOTIDINE 20 MG TABLET PO (23:06)
[2025-08-08 00:09] VITALS: BP 111/51; PULSE 92; RESP 16; TEMP 36.7; O2SAT 92
[2025-08-08 04:20] VITALS: BP 107/51; PULSE 98; RESP 14; TEMP 36.8; O2SAT 93
[2025-08-08] MEDS: GABAPENTIN 300 MG CAPSULE PO (05:13)
[2025-08-08 05:53] LABS: Hematocrit 34.3 % (37.0-47.0); Hemoglobin 11.3 g/dL (12.0-15.0); Mean Corpuscular HGB Conc 32.9 g/dl (32-36); Mean Corpuscular Hemoglobin 29.9 pg (26-34); Mean Corpuscular Volume 90.7 fl (80-100); Platelet Count Result 179 k/mm3 (150-375); Red Blood Count 3.78 M/mm3 (4.2-5.4); White Blood Count 11.7 K/mm3 (4.5-10.0)
[2025-08-08 06:04] LABS: Anion Gap 3 mmol/L (4-12); Blood Urea Nitrogen 16 mg/dL (7-17); Calcium 8.5 mg/dL (8.4-10.2); Carbon Dioxide 27 mmol/L (22-30); Chloride 102 mmol/L (98-107); Estimated CRCL calculation 49 ml/min; Estimated Glomerular Filt Rate > 60; Glucose 133 mg/dL (65-110); Potassium 4.5 mmol/L (3.4-5.0); Sodium 132 mmol/L (137-145)
[2025-08-08 08:00] VITALS: BP 130/57; PULSE 92; RESP 16; TEMP 35.6; O2SAT 95
[2025-08-08] MEDS: MELOXICAM 7.5 MG TABLET 15 MG PO (09:15)
[2025-08-08] MEDS: FAMOTIDINE 20 MG TABLET PO (09:15)
[2025-08-08 12:00] VITALS: BP 141/57; PULSE 84; RESP 18; TEMP 35.7; O2SAT 91
--- NOTE | 2025-08-08 13:51 | WPDANESPN ---
Anes - Prog Note Post-Op Date/Time: 08/08/25 13:51 Cardiovascular status: normal Respiratory status: normal Airway patency: baseline Mental status: baseline Post-Op hydration status: normal Vital Signs: Last Vital Signs Temp 35.7 C L 08/08/25 12:00 Pulse 84 08/08/25 12:00 Resp 18 08/08/25 12:00 BP 141/57 H 08/08/25 12:00 Pulse Ox 91 08/08/25 12:00 O2 Del Method Room Air 08/08/25 08:00 O2 Flow Rate 8 08/07/25 15:30 Pain Score (VAS): 0 I/O: Intake & Output 08/07/25 08/08/25 08/08/25 23:59 07:59 15:59 Intake Total 240 Balance 240 Laboratory Tests 08/08/25 05:34 08/08/25 05:34 08/08/25 05:34 WBC 11.7 H RBC 3.78 L Hgb 11.3 L Hct 34.3 L MCV 90.7 MCH 29.9 MCHC 32.9 RDW 13.7 Plt Count 179 MPV 9.4 Sodium 132 L Potassium 4.5 Chloride 102 Carbon Dioxide 27 Anion Gap 3 L BUN 16 Creatinine 0.81 Estim Creat Clear Calc 49 Estimated GFR > 60 Glucose 133 H Calcium 8.5 Post-procedural complaints: none Patient Feedback: Patient satisfied with anesthetic care.
--- NOTE | 2025-08-08 14:15 | P.DS_ITS ---
DS: Admitting Diagnosis Discharge Date 08/08/2025 Admitting Diagnosis Incarcerated recurrent incisional hernia 6 cm, adhesions DS: Discharge Diagnosis Discharge Diagnosis (1) Recurrent incisional hernia with incarceration: Code(s): K43.0 - Incisional hernia with obstruction, without gangrene Status: Chronic DS: Summary Hospital Course Reason for hospitalization: Patient had 2 previous mesh hernia repairs done laparoscopically. She then developed a re recurrent incarcerated incisional hernia which is bothersome to her. CT demonstrated a recurrent hernia just above the previous mesh. Patient was admitted for a scheduled robotic laparoscopic repair of re recurrent incisional hernia. Hospital Course: Patient was admitted for scheduled procedure. She was taken to surgery and induced under generalized anesthesia. After the camera was placed was difficult to keep the trocar within the abdominal cavity due to excessive amount of redundant skin from previous weight loss. It was noted that there were numerous adhesions as well as additional hernias beyond what was expected. Some adhesiolysis was performed to the anterior abdominal, but many were left unable to be taken down. Hernias were noted to contain bowel or portions of bowel. The decision was made to terminate the laparoscopic procedure, as it was apparent that it would require an open approach with component separation. Laparoscopic repair would be unsafe and likely to be unsuccessful. Skin wounds were closed and patient was awakened and taken to recovery in good condition. Patient remained stable overnight. Morning labs were drawn and demonstrated a white blood cell count of 11.7, likely postop reaction. Mild hyponatremia. Upon exam this morning blood on patient's count was noted. Abdominal examination revealed left lower quadrant incision had opened up. Two interrupted subcuticular stitches were placed with 4-0 Vicryl. Patient tolerated well, as she was still fairly numb to the area. Patient is surgically stable for discharge. Tolerating regular diet, voiding appropriately, ambulating independently. Patient did not require any narcotic pain medication. She will follow-up in 1-[address] Carlos to further discuss open approach to hernia repair. Status at Discharge Functional status at discharge: independent ambulation Overall status at discharge: patient is back to baseline Time Spent with Patient Time attestation: Total time spent providing and/or coordinating discharge services: Time spent: Less than 30 minutes Exam Const: General: comfortable and no acute distress Eyes: General: appearance normal, both eyes and all related structures Neck: Neck: supple Resp: Effort & Inspection: normal respiratory effort Cardio: Rate: regular rate GI: Inspection: non-distended GI Palp: Yes Soft to palpation and Yes Tender ness to palpation present (GI) (minimal tenderness around incisions) Other: Left lower quadrant incision dehiscence. Draining blood. Closed with 4-0 Vicryl. All other incisions clean dry and intact. Skin: General skin exam: normal color and no rashes or lesions noted DS: Data Data Completed and Pending Labs on day of discharge: Labs from last 24 hours 08/08/25 05:34 WBC 11.7 H RBC 3.78 L Hgb 11.3 L Hct 34.3 L MCV 90.7 MCH 29.9 MCHC 32.9 RDW 13.7 Plt Count 179 MPV 9.4 Sodium 132 L Potassium 4.5 Chloride 102 Carbon Dioxide 27 Anion Gap 3 L BUN 16 Creatinine 0.81 Estim Creat Clear Calc 49 Estimated GFR > 60 Glucose 133 H Calcium 8.5 Procedures/Treatments: Procedures Operation Date: 08/07/25 13:00 Actual Procedure Side Surgeon p Attempted Robotic Assisted Incarcerated Recurrent Incisional Hernia Repair with Mesh Not Applicable Cornelio Carlos MD Discharge Plan Discharge Patient Disposition: Home Discharge Instructions: * Okay to gradually resume normal activities. * Resume usual home diet. * May shower or bathe tomorrow, please wash over incisions with soap and water. * See Dr. Carlos in 1-2 weeks for follow-up. Call to schedule. * Call for severe abdominal pain, persistent drainage or bleeding from wound incisions, temp over 100.5, or other significant change in condition. * Take Tylenol or ibuprofen as needed for any incisional pain. * Continue your usual home medications. Patient Language: Angolan Stand Alone Forms: General Discharge Instructions Follow-up/Referrals: Cornelio Carlos MD [Physician, General Surgery] - 1 Week Referral Note: Call for appointment Discharge Medications: Continued lisinopril 10 mg tablet 10 mg PO HS meloxicam 15 mg tablet 15 mg PO DAILY gabapentin 300 mg capsule 300 mg PO Q8H
== END 2025-08-08 15:30 | disposition home or self-care (01) ==
LOC: ANHSURGERY 10:32 → ANH3MEDSUR 16:28
PROVIDERS: PCP Nurse Practitioner Family; Visit Provider Surgery
PROC: (CPT 49329; principal; 2025-08-07 13:00)
DX: K43.0 Incisional hernia with obstruction, without gangrene (principal); N73.6 Female pelvic peritoneal adhesions (postinfective); I10 Essential (primary) hypertension; M19.90 Unspecified osteoarthritis, unspecified site; E66.9 Obesity, unspecified; Z68.34 Body mass index [BMI] 34.0-34.9, adult; Z98.890 Other specified postprocedural states; Z90.49 Acquired absence of other specified parts of digestive tract; Z87.891 Personal history of nicotine dependence; Z80.9 Family history of malignant neoplasm, unspecified; Z82.49 Family history of ischemic heart disease and other diseases of the circulatory system; Z53.8 Procedure and treatment not carried out for other reasons
CPT/HCPCS: 49329; 36415; 80048; 85027; J0690; A9270; J0616; J1100; J1596; J1650; J1885; J2003; J2371; J2405; J2704; J3010; J7120

== ENCOUNTER 2025-11-02 12:21 | Outpatient (CLI) | payer OTHER, SELFPAY ==
--- NOTE | ~2025-11-02 | XR_ITS ---
EXAMINATION: XR chest 2V DATE: 11/02/2025 13:10 INDICATION: Preop TECHNIQUE: Frontal and lateral views of the chest were obtained. COMPARISON: August 03, 2025 FINDINGS: Large hiatal hernia, and multilevel kyphoplasty in the thoracic spine again noted. Marginal lung volumes but no focal acute process within the lungs. Heart shadow stable. 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 IMPRESSION: 1. No focal acute process; stable appearing chest x-ray compared to August 032024. Reviewed, dictated and finalized at location A. [facility]ER IMPRESSION: 1. No focal acute process; stable appearing chest x-ray compared to July 232024.
--- NOTE | 2025-11-02 12:37 | ECG_ITS ---
Test Date: 2025-11-02 12:47:59 Measurements Intervals Ovid Rate: 81 P: 88 MA: 193 QRS: -6 QRSD: 93 T: 7 QT: 360 QTc: 420 Interpretive Statements SINUS RHYTHM WITH FREQUENT VENTRICULAR PREMATURE COMPLEXES EARLY PRECORDIAL R/S TRANSITION BORDERLINE T WAVE ABNORMALITY- INFERIOR LEADS BASELINE ARTIFACT- I, II, III, AVR, AVL, AVF, V2-V6 ABNORMAL ECG Compared to ECG 08/03/2025 12:39:15 No significant changes Electronically Signed On 11-02-2025 13:03:41 [employer] OFF[employer] by Finesse Thomas D.O.
[2025-11-02 15:21] LABS: Hematocrit 41.7 % (37.0-47.0); Hemoglobin 13.6 g/dL (12.0-15.0); Immature Granulocyte Percent A 0.3 % (0-0.5); Lymphocytes Absolute Auto 1.48 K/mm3 (0.9-3.2); Mean Corpuscular HGB Conc 32.6 g/dl (32-36); Mean Corpuscular Hemoglobin 30.0 pg (26-34); Mean Corpuscular Volume 92.1 fl (80-100); Nucleated Red Blood Cells Absolute Auto 0.000 K/mm3 (0.0-0.012); Nucleated Red Blood Cells Perc 0.0 % (0.0-0.2); Platelet Count Result 193 k/mm3 (150-375); Red Blood Count 4.53 M/mm3 (4.2-5.4); White Blood Count 6.5 K/mm3 (4.5-10.0)
[2025-11-02 15:25] LABS: Alanine Aminotransferase 16 U/L (6-35); Albumin Level 4.1 g/dL (3.5-5.1); Alkaline Phosphatase 103 U/L (38-126); Anion Gap 3 mmol/L (4-12); Aspartate Amino Transferase 32 U/L (14-36); Bilirubin,Total 0.5 mg/dL (0.2-1.3); Blood Urea Nitrogen 21 mg/dL (7-17); Calcium 10.5 mg/dL (8.4-10.2); Carbon Dioxide 32 mmol/L (22-30); Chloride 102 mmol/L (98-107); Estimated Glomerular Filt Rate 55; Glucose 108 mg/dL (65-110); Potassium 4.0 mmol/L (3.4-5.0); Sodium 137 mmol/L (137-145); Total Protein 7.4 g/dL (6.3-8.2)
[2025-11-02 15:43] LABS: INR 1.0; Prothrombin Time 12.7 Seconds (11.1-14.7)
== END 2025-11-02 12:22 | disposition home or self-care (01) ==
LOC: ANHSURGERY 12:27
PROVIDERS: PCP Nurse Practitioner Family; Visit Provider Surgery
DX: K40.90 Unilateral inguinal hernia, without obstruction or gangrene, not specified as recurrent (principal); K43.0 Incisional hernia with obstruction, without gangrene
CPT/HCPCS: 36415; 71046; 80053; 85025; 85610; 86850; 86900; 86901; 93005